=== PATIENT | male | born 1950 | race Caucasian/White ===

== ENCOUNTER 2021-01-20 01:49 | Day surgery (SDC) | payer MEDICARE, BC, SELFPAY ==
[2020-12-30 13:10] VITALS: BMI 25.8
[2021-01-20 07:09] VITALS: BP 150/72; PULSE 53; RESP 16; TEMP 36.3; O2SAT 98; BMI 26.8
[2021-01-20] MEDS: LACTATED RINGERS 1,000 ML 150 ML IV CONT (07:14)
[2021-01-20 07:20] LABS: Glucose Point of Care 119 mg/dl (65-105)
--- NOTE | 2021-01-20 07:48 | WPDGICN ---
Assessment and Plan Assessment and plan (1) Gastro-esophageal reflux disease without esophagitis: Code(s): K21.9 - Gastro-esophageal reflux disease without esophagitis Status: Acute Assessment and Plan: Patient complains of throat burning. He complains of excessive phlegm. Given his prior history of acid reflux. Suspect this may contribute to the symptoms. Currently on pantoprazole 40 mg p.o. b.i.d.. Plan is to continue anti-reflux measures. An EGD will be performed to assess further. Should symptoms persist long-term ENT follow-up may be an alternate consideration. (2) History of colon polyps: Code(s): Z86.010 - Personal history of colonic polyps Status: Acute Assessment and Plan: Patient has had colon polyps in the past. Anticipate follow-up colonoscopies on an intermittent basis. At anticipate follow-up colonoscopy 2021. (3) Family history of colon cancer in mother: Code(s): Z80.0 - Family history of malignant neoplasm of digestive organs Status: Acute GI Consult Note Consult date/time: 01/20/21 07:48 HPI: Lonny Vargas is a 70 year old male Presents for EGD. Patient has a sensation of excess phlegm in his throat. He complains of throat burning. In the past he is known to have acid reflux. Previous EGD is shown esophageal erosions. Most recently has been on PPI therapy on a b.i.d. basis. This has helped to a small degree. Because of ongoing sensations follow-up EGD is advised. Patient denies any difficulty swallowing food. He has had no dysphagia. No bleeding has been reported. No weight loss. Patient does have a prior history of colon polyps. There is a family history of colon cancer. He is anticipate follow-up colonoscopy next year. Review of Systems Review of Systems: All systems reviewed & are unremarkable except as noted in HPI and below PMFSH Past Medical History Medical History History of IBS Surgical History Surgical History History of vasectomy Family History Family History Father Diabetes mellitus Carcinoma of colon Grandparent Diabetes mellitus Family history of cardiovascular disease Family history of elevated blood lipids Social History Social History Smoking status: Never smoker Alcohol intake: current Alcohol use details: rarely Substance use: never Living arrangements: with family Spiritual care concerns: No Meds Home Medications and Allergies Home Medications Medication Instructions Recorded Confirmed Type finasteride 5 mg tablet 5 mg PO DAILY 07/01/19 01/20/21 History fvhfpcysaqko-yug-bvtod acid-vit 1 tablet PO DAILY 07/01/19 01/20/21 History K-lycop 400 mcg-20 mcg-370 mcg tablet sildenafil 50 mg tablet 50 mg PO DAILY PRN 07/01/19 01/20/21 History vitamin B complex 1 tablet PO DAILY 07/01/19 01/20/21 History fluticasone propionate 50 See Rx Instructions NASAL DAILY 11/06/19 01/20/21 Rx mcg/actuation nasal #15.8 ml spray,suspension diclofenac sodium 1 % topical gel 4 gm TOPICAL QID #100 gm 12/27/19 01/20/21 Rx atorvastatin 20 mg tablet See Rx Instructions .ROUTE 07/02/20 01/20/21 Rx .COMPLEX #90 tablet losartan 50 mg tablet 50 mg PO DAILY #90 tablet 09/22/20 01/20/21 Rx metformin 500 mg tablet,extended 500 mg PO DAILY #90 tablet 09/22/20 01/20/21 Rx release 24 hr cyclobenzaprine 10 mg tablet 10 mg PO .PRN tablet 12/10/20 01/20/21 History pantoprazole 40 mg tablet,delayed 40 mg PO BID #60 tablet 12/10/20 01/20/21 Rx release fluoxetine 10 mg capsule See Rx Instructions .ROUTE 12/22/20 01/20/21 Rx .COMPLEX #90 cap doxycycline hyclate 100 mg capsule 100 mg PO BID #20 cap 12/29/20 01/20/21 Rx methylprednisolone 4 mg tablets in See Rx Instr
--- NOTE | 2021-01-20 07:53 | WPDANESEPPF ---
Anes - Initial Pre Proc Eval Procedure: Operation Date: 01/20/21 08:00 Proposed Procedures p Esophagogastroduodenoscopy - Clark Christensen MD Date/Time: 01/20/21 07:53 Surgeon: Clark Christensen MD Pre Op Diagnosis: GERD Patient Data Age: 70 Gender: M Height: 1.73 m Weight: 80 kg Last Vital Signs Temp 97.4 F L 01/20/21 07:09 Pulse 53 L 01/20/21 07:09 Resp 16 01/20/21 07:09 BP 150/72 H 01/20/21 07:09 Pulse Ox 98 01/20/21 07:09 Allergies Allergy/AdvReac Type Severity Reaction Status Date / Time IVP DYE Allergy Intermediate unknown Uncoded 01/20/21 07:06 Home Medications Medication Instructions Recorded Confirmed Type finasteride 5 mg tablet 5 mg PO DAILY 07/01/19 01/20/21 History eklwueeikdmz-cnc-ictmo acid-vit 1 tablet PO DAILY 07/01/19 01/20/21 History K-lycop 400 mcg-20 mcg-370 mcg tablet sildenafil 50 mg tablet 50 mg PO DAILY PRN 07/01/19 01/20/21 History vitamin B complex 1 tablet PO DAILY 07/01/19 01/20/21 History fluticasone propionate 50 See Rx Instructions NASAL DAILY 11/06/19 01/20/21 Rx mcg/actuation nasal #15.8 ml spray,suspension diclofenac sodium 1 % topical gel 4 gm TOPICAL QID #100 gm 12/27/19 01/20/21 Rx atorvastatin 20 mg tablet See Rx Instructions .ROUTE 07/02/20 01/20/21 Rx .COMPLEX #90 tablet losartan 50 mg tablet 50 mg PO DAILY #90 tablet 09/22/20 01/20/21 Rx metformin 500 mg tablet,extended 500 mg PO DAILY #90 tablet 09/22/20 01/20/21 Rx release 24 hr cyclobenzaprine 10 mg tablet 10 mg PO .PRN tablet 12/10/20 01/20/21 History pantoprazole 40 mg tablet,delayed 40 mg PO BID #60 tablet 12/10/20 01/20/21 Rx release fluoxetine 10 mg capsule See Rx Instructions .ROUTE 12/22/20 01/20/21 Rx .COMPLEX #90 cap doxycycline hyclate 100 mg capsule 100 mg PO BID #20 cap 12/29/20 01/20/21 Rx methylprednisolone 4 mg tablets in See Rx Instructions PO PER PKG DIR 12/29/20 01/20/21 Rx a dose pack #21 ea Laboratory Tests 01/20/21 07:16 POC Capillary Glucose 119 mg/dl H mg/dl (65-105) Patient hx anesthesia problems: none Family hx anesthesia problems: none PMFSH Past Medical History Medical History History of IBS Surgical History Surgical History History of vasectomy Family History Family History Father Diabetes mellitus Carcinoma of colon Grandparent Diabetes mellitus Family history of cardiovascular disease Family history of elevated blood lipids Social History Social History Smoking status: Never smoker Alcohol intake: current Alcohol use details: rarely Substance use: never Living arrangements: with family Spiritual care concerns: No Anes - Eval Final PreProcedure Day of Procedure 01/20/21 07:53 Patient weight: overweight Heart: regular rate and rhythm Lungs: clear to auscultation Airway: Mallampati scale class II Neurological: alert and oriented Last oral intake: >/= 8 hours ASA classification: III Emergent: no Anesthetic plan: proceed Anesthesia type and monitoring: general GIVS and standard monitoring Informed Consent: The patient's anesthetic plan and its attendant risks and benefits were discussed with the patient/family/POA. Questions were solicited and answers provided to the satisfaction of the patient/family/POA.
[2021-01-20 08:10] VITALS: BP 135/64; PULSE 64; RESP 22; O2SAT 94
[2021-01-20 08:20] VITALS: BP 125/62; PULSE 55; RESP 21; O2SAT 94
[2021-01-20 08:30] VITALS: BP 130/61; PULSE 52; RESP 18; O2SAT 97
== END 2021-01-20 08:38 | disposition home or self-care (01) ==
PROVIDERS: PCP Family Medicine; Visit Provider Internal Medicine Gastroenterology
PROC: 0DJ08ZZ Inspection of Upper Intestinal Tract, Via Natural or Artificial Opening Endoscopic (ICD-10-PCS; CPT 43235; principal; 2021-01-20 08:00)
DX: K21.9 Gastro-esophageal reflux disease without esophagitis (principal); Q39.4 Esophageal web; Z80.0 Family history of malignant neoplasm of digestive organs; Z86.010 Personal history of colon polyps; Z79.84 Long term (current) use of oral hypoglycemic drugs
CPT/HCPCS: 43450; 43239; 82948; J2704; J7120

== ENCOUNTER 2021-05-12 11:28 | Emergency (ER) | payer MEDICARE, BC, SELFPAY ==
--- NOTE | ~2021-05-12 | XR_ITS ---
EXAMINATION: XR knee RT min 4V DATE: 05/12/2021 12:18 INDICATION: Right knee pain. TECHNIQUE: 4 views of right knee were obtained. COMPARISON: None. FINDINGS: Bone alignment is normal. No fracture. There is mild tricompartmental osteoarthritis charac terized by tiny marginal osteophytes. No joint space narrowing. No knee joint effusion. IMPRESSION: 1. Mild right knee osteoarthritis. Reviewed, dictated and finalized at location A.
[2021-05-12 11:42] VITALS: BP 147/64; PULSE 59; RESP 18; TEMP 36.4; O2SAT 99
--- NOTE | 2021-05-12 11:54 | ED.BACK ---
HPI - Back Pain/Injury General Chief Complaint: Extremity Problem,Nontraumatic Stated Complaint: Rt Leg Pain Time Seen by Provider: 05/12/21 11:54 Source: patient Mode of arrival: ambulatory Limitations: no limitations History of Present Illness HPI Narrative: Lonny Vargas is a 70-year-old male with a PMH of high cholesterol, BPH, depression, high blood pressure, diabetes, GERD, erectile dysfunction, who comes to [facility] with complaints of right leg pain. Started POA when he was walking to the car from relocating and how long the car to get out of the car was brought here. He has been working at the house on his hands and knees playing on floor and says the back of his leg is been sore but has not been causing this kind of pain Related Data Home Medications Medication Instructions Recorded Confirmed finasteride 5 mg tablet 5 mg PO DAILY 07/01/19 03/16/21 inxschukizrn-xrp-qisju acid-vit 1 tablet PO DAILY 07/01/19 03/16/21 K-lycop 400 mcg-20 mcg-370 mcg tablet sildenafil 50 mg tablet 50 mg PO DAILY PRN 07/01/19 03/16/21 vitamin B complex 1 tablet PO DAILY 07/01/19 03/16/21 cyclobenzaprine 10 mg tablet 10 mg PO .PRN tablet 12/10/20 03/16/21 Allergies Allergy/AdvReac Type Severity Reaction Status Date / Time IVP DYE Allergy Intermediate unknown Uncoded 03/16/21 14:47 Review of Systems Review of Systems: CONSTITUTIONAL: Denies fever, chills, sweats. EYES: Denies visual changes, redness, discharge. ENT: Denies rhinorrhea, congestion, sore throat, otalgia. CARDIOVASCULAR: Denies chest pain, palpitations, edema. RESPIRATORY: Denies dyspnea, wheezing, cough GASTROINTESTINAL: Denies abdominal pain, nausea, vomiting, diarrhea. GENITOURINARY: Denies dysuria, hematuria, abnormal discharge SKIN: Denies rash or itching. NEUROLOGIC: Denies numbness, or focal weakness. PSYCHIATRIC: Denies anxiety or depression. Right posterior knee pain that started suddenly POA PMFSH Past Medical History Medical History Essential (primary) hypertension Glucose intolerance History of IBS Mixed hyperlipidemia Surgical History Surgical History History of vasectomy Family History Family History Father Diabetes mellitus Carcinoma of colon Grandparent Diabetes mellitus Family history of cardiovascular disease Family history of elevated blood lipids Social History Social History (Updated 05/12/21 @ 12:05 by Jessica Galicia CNP) Smoking status: Never smoker Alcohol intake: current Alcohol use details: rarely Substance use: never Spiritual care concerns: No Comments At time of signature, I agree with nursing past medical, surgical, social and family history. There is no relevant family history pertinent to the presenting complaint. Exam Narrative: GENERAL: This is a well-nourished, well-developed patient, in mild distress. HEAD: normocephalic, atraumatic. EYES: Sclera clear/white. Vision is grossly intact. EARS: External ears normal, Hearing grossly intact. NOSE: External nose normal without nasal discharge, nares without redness, no rhinorrhea. THROAT: Mucous membranes moist, posterior pharynx NECK: Neck supple, non-tender CARDIOVASCULAR: Regular rate and rhythm without murmurs, gallops, or rubs. RESPIRATORY: Clear to auscultation. Breath sounds equal bilaterally. No wheezes, rales, or rhonchi. GASTROINTESTINAL: Abdomen soft, non-tender, SKIN: warm, intact with no suspicious lesions or rash, good texture and turgor. NEURO: awake, alert, and oriented to person, place and time. There were no obvious focal neurologic abnormalities. Steady gait EXTREMITIES: Normal range of motion. He has nearly full range of motion on right with some restriction of full flexion but states pain exceeds tender tries to stand on leg BACK: Nontender without
== END 2021-05-12 12:57 | disposition home or self-care (01) ==
PROVIDERS: Emergency Provider Nurse Practitioner; PCP Family Medicine
DX: M79.661 Pain in right lower leg (principal); M25.561 Pain in right knee; I10 Essential (primary) hypertension; E78.2 Mixed hyperlipidemia; E78.00 Pure hypercholesterolemia, unspecified; E11.9 Type 2 diabetes mellitus without complications; K21.9 Gastro-esophageal reflux disease without esophagitis; N40.0 Benign prostatic hyperplasia without lower urinary tract symptoms
CPT/HCPCS: 73564; 99213; G0463; L1830

== ENCOUNTER 2022-01-11 00:47 | Day surgery (SDC) | payer MEDICARE, BC, SELFPAY ==
[2021-12-24 13:28] VITALS: BMI 26.2
[2022-01-11 08:47] LABS: Glucose Point of Care 111 mg/dl (65-105)
[2022-01-11 08:52] VITALS: BP 173/63; PULSE 56; RESP 20; TEMP 36.3; O2SAT 98
[2022-01-11] MEDS: LACTATED RINGERS 1,000 ML 150 ML IV CONT (08:57)
--- NOTE | 2022-01-11 09:02 | WPDHPUPDATE1 ---
History and Physical Update Update Date/Time: 01/11/22 09:02 History and Physical has been reviewed, including an updated exam of the patient. There are NO changes in the patient's condition. Risks, benefits, and alternatives have been discussed and questions answered. Patient agrees to proceed with procedure.
--- NOTE | 2022-01-11 09:33 | WPDANESEPPF ---
Anes - Initial Pre Proc Eval Procedure: Operation Date: 01/11/22 10:00 Proposed Procedures p Colonoscopy - Clark Christensen MD Date/Time: 01/11/22 09:33 Surgeon: Clark Christensen MD Pre Op Diagnosis: change in bowel habits Patient Data Age: 71 Gender: M Height: 1.73 m Weight: 76.8 kg Last Vital Signs Temp 36.3 C L 01/11/22 08:52 Pulse 56 L 01/11/22 08:52 Resp 20 01/11/22 08:52 BP 173/63 H 01/11/22 08:52 Pulse Ox 98 01/11/22 08:52 O2 Del Method Room Air 01/11/22 08:52 Allergies Allergy/AdvReac Type Severity Reaction Status Date / Time IVP DYE Allergy Intermediate unknown Uncoded 01/11/22 08:48 Home Medications Medication Instructions Recorded Confirmed Type finasteride 5 mg tablet 5 mg PO DAILY 07/01/19 01/11/22 History jlkgtcnkdbys-enm-etoee acid-vit 1 tablet PO DAILY 07/01/19 01/11/22 History K-lycop 400 mcg-20 mcg-370 mcg tablet (One-A-Day Men's 50 Plus) sildenafil 50 mg tablet (Viagra) 50 mg PO DAILY PRN Seizure Activity 07/01/19 01/11/22 History diclofenac sodium 1 % topical gel 4 gm topical QID #100 grams 12/27/19 01/11/22 Rx (Voltaren) cyclobenzaprine 10 mg tablet 10 mg PO .PRN 12/10/20 01/11/22 History meloxicam 7.5 mg tablet 7.5 mg PO DAILY PRN pain #30 tabs 08/31/21 01/11/22 Rx pantoprazole 40 mg tablet,delayed 40 mg PO BID #60 tabs 09/07/21 01/11/22 Rx release atorvastatin 20 mg tablet 20 mg PO DAILY 01/11/22 01/11/22 History fluoxetine 10 mg capsule 10 mg PO DAILY 01/11/22 01/11/22 History fluticasone propionate 50 1 - 2 spray intranasal DAILY 01/11/22 01/11/22 History mcg/actuation nasal spray,suspension (Allergy Relief (fluticasone)) losartan 50 mg tablet 50 mg PO DAILY 01/11/22 01/11/22 History metformin 500 mg tablet,extended 500 mg PO DAILY 01/11/22 01/11/22 History release 24 hr Laboratory Tests 01/11/22 08:45 POC Capillary Glucose 111 mg/dl H mg/dl (65-105) Patient hx anesthesia problems: none Family hx anesthesia problems: none Results Review: All pre-operative results and documents have been reviewed as part of the pre-operative evaluation. [facility] Past Medical History Medical History Change in bowel habits Essential (primary) hypertension Glucose intolerance History of IBS Loose stools Mixed hyperlipidemia Surgical History Surgical History History of vasectomy Family History Family History Father Diabetes mellitus Carcinoma of colon Grandparent Diabetes mellitus Family history of cardiovascular disease Family history of elevated blood lipids Social History Social History Smoking status: Never smoker Alcohol intake: never Alcohol use details: rarely Substance use: never Substance use type: does not use Living arrangements: with family Spiritual care concerns: No Anes - Eval Final PreProcedure Day of Procedure 01/11/22 09:33 Patient weight: normal Heart: regular rate and rhythm Lungs: clear to auscultation Airway: Mallampati scale class II Neurological: alert and oriented ASA classification: II Emergent: no Anesthetic plan: proceed Anesthesia type and monitoring: general GIVS and standard monitoring Results Review: All pre-operative results and documents have been reviewed as part of the pre-operative evaluation. Informed Consent: The patient's anesthetic plan and its attendant risks and benefits were discussed with the patient/family/POA. Questions were solicited and answers provided to the satisfaction of the patient/family/POA.
[2022-01-11 10:20] VITALS: BP 112/60; PULSE 55; RESP 18; O2SAT 94
[2022-01-11 10:30] VITALS: BP 134/71; PULSE 46; RESP 20; O2SAT 99
[2022-01-11 10:40] VITALS: BP 138/69; PULSE 45; RESP 15; O2SAT 98
[2022-02-04 15:09] LABS: Gliadin AB, IgG <1.0 U/mL (<15.0); Reticulin IgA Negative (Negative); TTG IGA AB <1.0 U/mL (<15.0)
== END 2022-01-11 10:49 | disposition home or self-care (01) ==
PROVIDERS: PCP Family Medicine; Visit Provider Internal Medicine Gastroenterology
PROC: 0DJD8ZZ Inspection of Lower Intestinal Tract, Via Natural or Artificial Opening Endoscopic (ICD-10-PCS; CPT 45378; principal; 2022-01-11 10:00)
DX: R19.4 Change in bowel habit (principal); D12.0 Benign neoplasm of cecum; D12.5 Benign neoplasm of sigmoid colon; K63.5 Polyp of colon; K64.8 Other hemorrhoids; R19.5 Other fecal abnormalities; K57.30 Diverticulosis of large intestine without perforation or abscess without bleeding; K58.9 Irritable bowel syndrome, unspecified; K21.9 Gastro-esophageal reflux disease without esophagitis; Z80.0 Family history of malignant neoplasm of digestive organs; I10 Essential (primary) hypertension; E78.2 Mixed hyperlipidemia; Z79.84 Long term (current) use of oral hypoglycemic drugs
CPT/HCPCS: 45385; 36415; 82948; 83516; 86255; 88305; J7120

== ENCOUNTER 2022-01-25 10:04 | Emergency (ER) | payer MEDICARE, BC, SELFPAY ==
[2022-01-25 10:15] VITALS: BP 154/66; PULSE 61; RESP 18; TEMP 36.6; O2SAT 99
--- NOTE | 2022-01-25 10:22 | ED.GENADULT ---
HPI - General Adult General Chief complaint: Upper Respiratory Infection Stated complaint: Sore Throat Source: patient Mode of arrival: ambulatory Limitations: no limitations History of Present Illness HPI narrative: Patient presents for evaluation of sore throat for the last 3 days. His grandson had strep last and he states that they were spending quite a bit of time together. No fever, chills, nausea, vomiting, otalgia, cough or SOB. He has some rhinorrhea and sinus congestion which he attributes to seasonal allergies. He does not smoke. He took two home COVID tests which were both negative. He has received COVID vaccinations and booster. He has been taking ibuprofen for his symptoms. Related Data Home Medications Medication Instructions Recorded Confirmed finasteride 5 mg tablet 5 mg PO DAILY 07/01/19 01/25/22 wzvbsgsyluui-fpv-ubifa acid-vit 1 tablet PO DAILY 07/01/19 01/25/22 K-lycop 400 mcg-20 mcg-370 mcg tablet (One-A-Day Men's 50 Plus) cyclobenzaprine 10 mg tablet 10 mg PO .PRN 12/10/20 01/11/22 atorvastatin 20 mg tablet 20 mg PO DAILY 01/11/22 01/25/22 fluoxetine 10 mg capsule 10 mg PO DAILY 01/11/22 01/25/22 losartan 50 mg tablet 50 mg PO DAILY 01/11/22 01/25/22 metformin 500 mg tablet,extended 500 mg PO DAILY 01/11/22 01/25/22 release 24 hr Allergies Allergy/AdvReac Type Severity Reaction Status Date / Time IVP DYE Allergy Intermediate unknown Uncoded 01/25/22 10:20 Review of Systems Review of Systems: CONSTITUTIONAL: Denies fever, chills, or sweats. EYES: Denies visual changes, redness, or discharge. ENT: Reports sinus congestion and rhinorrhea. Reports sore throat. Denies otalgia. CARDIOVASCULAR: Denies chest pain, palpitations, or edema. RESPIRATORY: Denies cough or dyspnea. GASTROINTESTINAL: Denies abdominal pain, nausea, vomiting, or diarrhea. GENITOURINARY: Denies dysuria or hematuria. SKIN: Denies rash or itching. MUSCULOSKELETAL: Denies back pain, joint pain, or myalgia. NEUROLOGIC: Denies headache, numbness, dizziness, or weakness. PSYCHIATRIC: Denies anxiety or depression. [facility] Past Medical History Medical History Change in bowel habits Essential (primary) hypertension Glucose intolerance History of IBS Loose stools Mixed hyperlipidemia Surgical History Surgical History History of vasectomy Family History Family History Father Diabetes mellitus Carcinoma of colon Grandparent Diabetes mellitus Family history of cardiovascular disease Family history of elevated blood lipids Social History Social History Smoking status: Never smoker Alcohol intake: never Alcohol use details: rarely Substance use: never Substance use type: does not use Living arrangements: with family Gender identity (if verbalized by the patient): Male Sexual Orientation (if Verbalized by the Patient): Straight or Heterosexual Spiritual care concerns: No Exam Narrative: GENERAL: Well-appearing, well-nourished, and in no acute distress. HEAD: Normocephalic, atraumatic. EYES: PERRLA and EOMI. ENT: Nares clear, no rhinorrhea or epistaxis. Mucous membranes moist. Oropharynx without tonsillar hypertrophy exudate or other lesions. However, there is posterior pharyngeal erythema. Bilateral TMs pearly styles nonbulging NECK: Supple. No adenopathy or masses. No carotid bruits or JVD CHEST: Clear to auscultation. No respiratory distress. No wheezes rales or rhonchi HEART: Regular rate and rhythm. No murmur heard. Normal peripheral pulses. ABDOMEN: Soft, nontender, nondistended, normal active bowel sounds. EXTREMITIES: Normal range of motion. No edema. SKIN: Warm, dry, no rash. NEURO: No focal deficits. Alert and oriented x3. PSYCH: N
== END 2022-01-25 10:40 | disposition home or self-care (01) ==
PROVIDERS: Emergency Provider Nurse Practitioner; PCP Family Medicine
DX: J02.0 Streptococcal pharyngitis (principal); I10 Essential (primary) hypertension; E78.2 Mixed hyperlipidemia; Z98.52 Vasectomy status; E74.39 Other disorders of intestinal carbohydrate absorption
CPT/HCPCS: 87880; 99213; G0463

== ENCOUNTER 2022-03-30 13:09 | Outpatient (CLI) | payer MEDICARE, BC, SELFPAY ==
--- NOTE | 2022-03-31 15:48 | WPDHOLTEREM ---
Holter/Event Monitor Holter/Event Monitor Date of procedure: 03/30/22 Holter/Event Procedure: 24 Hr Holter Monitor Indications: Bradycardia Conclusion: 1. 24 hour holter monitor on 03/30/22. 2. Underlying rhythm is sinus rhythm. HR range 40-93 bpm; average HR 57 bpm. HR at 40 bpm was at 16:17. 3. There are 66 premature supraventricular complexes and 2 supraventricular couplets. No supraventricular tachycardia. 4. There are 4 premature ventricular complexes. No ventricular tachycardia. 5. No sinoatrial or atrioventricular blocks. No significant pauses greater than 2 seconds. 6. No symptoms available for correlation.
== END 2022-03-30 13:10 | disposition home or self-care (01) ==
LOC: ANHCARD 13:11
PROVIDERS: PCP Family Medicine; Visit Provider Physician Assistant
DX: R00.1 Bradycardia, unspecified (principal)
CPT/HCPCS: 93225; 93226

== ENCOUNTER 2022-04-01 07:25 | Outpatient (CLI) | payer MEDICARE, BC, SELFPAY ==
--- NOTE | 2022-04-22 18:13 | WPDSLEEPSTUD ---
Sleep Study Date of Study: 04/01/22 Ordering Provider: Josh Marley PA-C Interpreting Physician: Madyson Burkett, Sleep Study Type: Polysomnogram Height: 1.65 m Weight: 78.018 kg Body Mass Index: 28.6 Neck Circumference (inches): 16.5 [place]: 6 Reason for Sleep Study Loud snoring. The patient had nocturnal oximetry done on 03/16/2022 that showed an DAYNA of 6/hr. It was recommended that he have a sleep study. Sleep History The patient is a 71-year-old male with hypertension, prediabetes, GERD, hyperlipidemia, anxiety and benign prostatic hyperplasia that had a sleep study ordered by his primary care for evaluation of sleep apnea after having nocturnal oximetry done. The patient denies awakening from sleep short of breath. He denies awakening at night with heartburn, belching or cough. He constantly snores loud enough that others complain. He occasionally has trouble sleeping when he has a cold. He denies waking up gasping for air throughout the night. He rarely sweats excessively at night. He denies having heart palpitations or irregular heartbeats during the night. He occasionally falls asleep during the day But never while driving. He denies sleep paralysis, cataplexy and hypnagogic / hypnopompic hallucinations. He denies having trouble at school or work due to sleepiness. He denies having nightmares. He occasionally remembers his dreams. He rarely has thoughts racing through his mind. He rarely feels sad or depressed. He occasionally has anxiety. He occasionally has muscular tension. He rarely notices parts of his body jerk. He occasionally kicks during the night. He occasionally has crawling and aching feelings in his legs but rarely has leg pain during the night. He frequently grinds his teeth during sleep and occasionally awakens with morning jaw pain. He is rarely bothered by pain during the day and rarely awakened by pain during the night. He occasionally wakes up feeling stiff in the morning. He rarely wakes up with sore achy muscles. He denies waking up with pain in the neck, spine and other joints. He goes to bed between 10:30-11 p.m. on both weekdays and weekends. It takes him 5-10 minutes to fall asleep. He wakes up 1-2 times throughout the night to urinate. He is able to fall back asleep immediately. He wakes up between 6-7 a.m. on both weekdays and weekends. He typically gets 7 hours of sleep per night. He will stay in bed for 5-10 minutes after waking up in the morning. He currently lives with his . He does not consume any caffeinated beverages within 2 hours of bedtime. He does not engage in physical exercise before bedtime. He will occasionally read before falling asleep. He denies watching television before falling asleep. He will take naps in the afternoon or the evening. He drinks 3 cups of coffee per day. He denies tobacco, alcohol and recreational drug use. [facility] Past Medical History Medical History Change in bowel habits Essential (primary) hypertension Glucose intolerance History of IBS Loose stools Mixed hyperlipidemia Surgical History Surgical History History of vasectomy Family History Family History Father Diabetes mellitus Carcinoma of colon Grandparent Diabetes mellitus Family history of cardiovascular disease Family history of elevated blood lipids Social History Social History Social History: Caffeine-coffee Smoking status: Never smoker Alcohol intake: never Substance use: never Substance use type: does not use Gender identity (if verbalized by the patient): Male Sexual Orientation (if Verbalized by the Patient): Straight or Heterosexual Spiritual care concerns: No Medications Home Medications M
[2022-04-22 19:55] VITALS: BMI 28.6
== END 2022-04-02 06:16 | disposition home or self-care (01) ==
LOC: ANHCSM 07:26
PROVIDERS: PCP Family Medicine; Visit Provider Physician Assistant
DX: G47.30 Sleep apnea, unspecified (principal); R06.83 Snoring
CPT/HCPCS: 95810

== ENCOUNTER 2022-04-28 09:48 | Outpatient (CLI) | payer MEDICARE, BC, SELFPAY ==
--- NOTE | ~2022-04-28 | XR_ITS ---
EXAMINATION: XR chest 2V DATE: 04/28/2022 10:08 INDICATION: Abnormal blood gas level. TECHNIQUE: Frontal and lateral views of the chest were obtained. COMPARISON: None. FINDINGS: The chest demonstrates clear lungs without pneumonia, pleural effusion, or pneumothorax. Th e heart size is normal. IMPRESSION: 1. No acute cardiopulmonary disease. Reviewed, dictated and finalized at location A.
== END 2022-04-28 09:49 | disposition home or self-care (01) ==
PROVIDERS: PCP Family Medicine; Visit Provider Physician Assistant
DX: R79.81 Abnormal blood-gas level (principal)
CPT/HCPCS: 71046

== ENCOUNTER 2022-05-15 17:30 | Emergency (ER) | payer MEDICARE, BC, SELFPAY ==
--- NOTE | 2022-05-15 17:44 | ED.SKABFB ---
HPI - Skin/Abscess/Foreign Bdy General Chief complaint: Skin/Abscess/Foreign Body Stated complaint: stepped on a screw Time Seen by Provider: 05/15/22 17:44 Source: patient Mode of arrival: ambulatory Limitations: no limitations History of Present Illness HPI narrative: 71-year-old male presents with puncture wound to the plantar aspect of left foot. Stepped on wood board in backyard the head screw sticking out of it. States that screw was dirty and joe In his last tetanus was 9 years ago. Would like tetanus updated today. Cleaned wound prior to arrival. All systems reviewed and negative except as noted above. Related Data Home Medications Medication Instructions Recorded Confirmed finasteride 5 mg tablet 5 mg PO DAILY 07/01/19 05/15/22 oxynfiukhwdk-wxo-voxlp acid-vit 1 tablet PO DAILY 07/01/19 05/15/22 K-lycop 400 mcg-20 mcg-370 mcg tablet (One-A-Day Men's 50 Plus) atorvastatin 20 mg tablet 20 mg PO DAILY 01/11/22 05/15/22 fluoxetine 10 mg capsule 10 mg PO DAILY 01/11/22 05/15/22 metformin 500 mg tablet,extended 500 mg PO BID 01/11/22 05/15/22 release 24 hr Allergies Allergy/AdvReac Type Severity Reaction Status Date / Time IVP DYE Allergy Intermediate unknown Uncoded 05/15/22 17:35 Review of Systems Review of Systems: CONSTITUTIONAL: Denies fever, chills, or sweats. EYES: Denies visual changes, redness, or discharge. ENT: Denies rhinorrhea, congestion, sore throat, or otalgia. CARDIOVASCULAR: Denies chest pain, palpitations, or edema. RESPIRATORY: Denies cough or dyspnea. GASTROINTESTINAL: Denies abdominal pain, nausea, vomiting, or diarrhea. GENITOURINARY: Denies dysuria or hematuria. SKIN: Denies rash or itching. Reports puncture wound to plantar aspect left foot. MUSCULOSKELETAL: Denies back pain, joint pain, or myalgia. NEUROLOGIC: Denies headache, numbness, or weakness. PSYCHIATRIC: Denies anxiety or depression. All other systems reviewed are negative, except as documented in HPI. [facility] Past Medical History Medical History Change in bowel habits Essential (primary) hypertension Glucose intolerance History of IBS Loose stools Mixed hyperlipidemia Surgical History Surgical History History of vasectomy Family History Family History Father Diabetes mellitus Carcinoma of colon Grandparent Diabetes mellitus Family history of cardiovascular disease Family history of elevated blood lipids Social History Social History Social History: Caffeine-coffee Smoking status: Never smoker Alcohol intake: never Substance use: never Substance use type: does not use Gender identity (if verbalized by the patient): Male Sexual Orientation (if Verbalized by the Patient): Straight or Heterosexual Spiritual care concerns: No Comments At time of signature, agree with nursing past medical, surgical, social and family history. There is no relevant family history pertinent to the presenting complaint. Exam Narrative: GENERAL: This is a well-nourished, well-developed patient, in no apparent distress. HEAD: normocephalic, atraumatic. EYES: PERRL. Sclera clear/white. Vision is grossly intact. EARS: External ears normal NOSE: External nose normal NECK: Neck supple, non-tender without lymphadenopathy, masses or thyromegaly. CARDIOVASCULAR: Regular rate and rhythm without murmurs, gallops, or rubs. RESPIRATORY: Clear to auscultation. Breath sounds equal bilaterally. No wheezes, rales, or rhonchi. SKIN: warm, Dry, with no suspicious lesions or rash, good texture and turgor. Small puncture wound noted to plantar aspect left foot ( see image). NEURO: awake, alert, and oriented to person, place and time. There were no obvious focal neurologic abnormali
[2022-05-15] MEDS: TETANUS/DIPHTHERIA TOXOIDS ADSORB 0.5 ML VIAL (*BKC) IM (17:51)
[2022-05-15 18:30] VITALS: BP 145/61; PULSE 61; RESP 18; TEMP 36.5; O2SAT 99
== END 2022-05-15 17:59 | disposition home or self-care (01) ==
PROVIDERS: Emergency Provider Nurse Practitioner Family; PCP Family Medicine
DX: S91.332A Puncture wound without foreign body, left foot, initial encounter (principal); W26.8XXA Contact with other sharp object(s), not elsewhere classified, initial encounter; Z23 Encounter for immunization; I10 Essential (primary) hypertension; E78.2 Mixed hyperlipidemia; Z98.52 Vasectomy status; E74.39 Other disorders of intestinal carbohydrate absorption
CPT/HCPCS: 90471; 90714; 99212; G0463

== ENCOUNTER 2022-09-09 10:29 | Outpatient (CLI) | payer MEDICARE, BC, SELFPAY ==
--- NOTE | ~2022-09-09 | XR_ITS ---
EXAMINATION: XR foot RT min 3V DATE: 09/09/2022 10:51 INDICATION: Right heel pain TECHNIQUE: Dorsoplantar, lateral, and 2 oblique views of the right foot were obtained. COMPARISON: None. FINDINGS: A plantar calcaneal enthesophyte is noted. Bone alignment is normal. There is no fracture. There is mild osteoarthritis at the first metatarsophalangeal joint and in multiple interphalangeal j oints. The soft tissues are unremarkable. IMPRESSION: 1. Polyarticular osteoarthritis. Reviewed, dictated and finalized at location B. [facility]
== END 2022-09-09 10:30 | disposition home or self-care (01) ==
PROVIDERS: PCP Family Medicine; Visit Provider Physician Assistant
DX: M19.071 Primary osteoarthritis, right ankle and foot (principal)
CPT/HCPCS: 73630

== ENCOUNTER 2022-11-08 10:51 | Emergency (ER) | payer MEDICARE, BC, SELFPAY ==
[2022-11-08 11:12] VITALS: BP 123/64; PULSE 54; RESP 16; TEMP 36.4; O2SAT 99
--- NOTE | 2022-11-08 11:27 | ED.URI ---
HPI - URI/Sore Throat General Stated Complaint: congestion,cough Time Seen by Provider: 11/08/22 11:27 Source: patient Mode of arrival: ambulatory Limitations: no limitations History of Present Illness HPI Narrative: 72-year-old male presents with complaint of nasal congestion, sinus pressure for the past 10 days. Reports cough, postnasal drainage for the past 5 days. Afebrile. Denies nausea vomiting diarrhea. States that his told him that his cough sounds throaty . Patient denies chest pain and shortness of breath. Has tried Zyrtec, Sudafed but is not taking any medications consistently to treat his symptoms. Is concerned for a sinus infection. All systems reviewed and negative except as noted above. Related Data Home Medications Medication Instructions Recorded Confirmed finasteride 5 mg tablet 5 mg PO DAILY 07/01/19 09/02/22 rnajwhshuctm-woj-pszlh acid-vit 1 tablet PO DAILY 07/01/19 09/02/22 K-lycop 400 mcg-20 mcg-370 mcg tablet (One-A-Day Men's 50 Plus) fluoxetine 10 mg capsule 10 mg PO DAILY 01/11/22 09/02/22 metformin 500 mg tablet,extended 500 mg PO BID 01/11/22 09/02/22 release 24 hr Allergies Allergy/AdvReac Type Severity Reaction Status Date / Time IVP DYE Allergy Intermediate unknown Uncoded 11/08/22 11:36 Review of Systems Review of Systems: CONSTITUTIONAL: Denies fever, chills, or sweats. reports fatigue. EYES: Denies visual changes, redness, or discharge. ENT: reports rhinorrhea, congestion, sinus pressure, postnasal drainage. Denies sore throat, or otalgia. CARDIOVASCULAR: Denies chest pain, palpitations, or edema. RESPIRATORY: Reports cough. Denies dyspnea. GASTROINTESTINAL: Denies abdominal pain, nausea, vomiting, or diarrhea. GENITOURINARY: Denies dysuria or hematuria. SKIN: Denies rash or itching. MUSCULOSKELETAL: Denies back pain, joint pain, or myalgia. NEUROLOGIC: Denies headache, numbness, or weakness. PSYCHIATRIC: Denies anxiety or depression. All other systems reviewed are negative, except as documented in HPI. 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 Loose stools Mixed hyperlipidemia Primary osteoarthritis, unspecified site Trigger finger Umbilical hernia without obstruction and without gangrene Surgical History Surgical History History of vasectomy Family History Family History Father Diabetes mellitus Carcinoma of colon Grandparent Diabetes mellitus Family history of cardiovascular disease Family history of elevated blood lipids Social History Social History (Updated 09/02/22 @ 14:32 by Radha Krishna, [facility]) Social History: Caffeine-coffee Smoking status: Never smoker Alcohol intake: never Substance use: never Substance use type: does not use Lack of Transportation: No Lack of Food: Never True Current Housing: I Have Housing Concerned About Future Housing: No Difficulty Paying Gas/Electric Bills: No Difficulty Paying for Meds: No Currently Unemployed: No Education: Master's Degree or Higher Difficulty w/ Childcare or Family Care: No Living arrangements: with family Gender identity (if verbalized by the patient): Male Sexual Orientation (if Verbalized by the Patient): Straight or Heterosexual Spiritual care concerns: No Comments At time of signature, agree with nursing past medical, surgical, social and family history. There is no relevant family history pertinent to the presenting complaint. Exam Narrative: GENERAL: This is a well-nourished, well-developed patient, in no apparent distress. HEAD: normocephalic, atraumatic. EYES: PERRL. Sclera clear/white. Vision is grossly intact. EARS: External
== END 2022-11-08 11:43 | disposition home or self-care (01) ==
PROVIDERS: Emergency Provider Nurse Practitioner Family; PCP Family Medicine
DX: J01.90 Acute sinusitis, unspecified (principal); I10 Essential (primary) hypertension; E78.2 Mixed hyperlipidemia; Z98.52 Vasectomy status
CPT/HCPCS: 99213; G0463

== ENCOUNTER 2023-01-07 18:19 | Emergency (ER) | payer MEDICARE, BC, SELFPAY ==
[2023-01-07 18:34] VITALS: BP 143/65; PULSE 52; RESP 16; TEMP 36.4; O2SAT 99
--- NOTE | 2023-01-07 18:50 | ED.SKABFB ---
HPI - Skin/Abscess/Foreign Bdy General Chief complaint: Skin/Abscess/Foreign Body Stated complaint: Rash Time Seen by Provider: 01/07/23 18:55 Source: patient Mode of arrival: ambulatory Limitations: no limitations History of Present Illness HPI narrative: 72-year-old male presented for c/o red rash to left chest for about 3 days and a cluster was found today on the left back. Endorses pain with anything touching the rash lesions. Denies lip, tongue, or throat swelling, shortness of breath or wheezing. Denies changes to soap, detergent, lotion, medication or any other exposures. No one else in the household with similar symptoms. Reports cold symptoms about 3 weeks ago. Related Data Home Medications Medication Instructions Recorded Confirmed finasteride 5 mg tablet 5 mg PO DAILY 07/01/19 01/07/23 nnjhwvbjhlax-slf-qrtvd acid-vit 1 tablet PO DAILY 07/01/19 01/07/23 K-lycop 400 mcg-20 mcg-370 mcg tablet (One-A-Day Men's 50 Plus (with vitamin K)) Allergies Allergy/AdvReac Type Severity Reaction Status Date / Time IVP DYE AdvReac Mild Hives Uncoded 01/07/23 18:30 Review of Systems Review of Systems: CONSTITUTIONAL: Denies body aches, fever, chills, or sweats. EYES: Denies visual changes, redness, or discharge. ENT: Denies rhinorrhea, congestion CARDIOVASCULAR: Denies chest pain, palpitations, or edema. RESPIRATORY: Denies cough or dyspnea. GASTROINTESTINAL: Denies abdominal pain, nausea, vomiting, or diarrhea. SKIN: per HPI MUSCULOSKELETAL: Denies back pain, joint pain, or myalgia. NEUROLOGIC: Denies headache, numbness, tingling, or weakness. 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 Loose stools Mixed hyperlipidemia Primary osteoarthritis, unspecified site Trigger finger Umbilical hernia without obstruction and without gangrene Surgical History Surgical History History of vasectomy Family History Family History Father Diabetes mellitus Carcinoma of colon Grandparent Diabetes mellitus Family history of cardiovascular disease Family history of elevated blood lipids Social History Social History Social History: Caffeine-coffee Smoking status: Never smoker Alcohol intake: never Substance use: never Substance use type: does not use Lack of Transportation: No Lack of Food: Never True Current Housing: I Have Housing Concerned About Future Housing: No Difficulty Paying Gas/Electric Bills: No Difficulty Paying for Meds: No Currently Unemployed: No Education: Master's Degree or Higher Difficulty w/ Childcare or Family Care: No Living arrangements: with family Gender identity (if verbalized by the patient): Male Sexual Orientation (if Verbalized by the Patient): Straight or Heterosexual Spiritual care concerns: No Comments At time of signature, I have reviewed and agree with nursing past medical, surgical, social and family history unless otherwise noted. Please see nursing chart for further information. There is no relevant family history pertinent to the presenting complaint Exam Narrative: GENERAL: Well-appearing HEAD: Normocephalic, atraumatic. EYES: conjunctivae clear, and EOMI. ENT: Mucous membranes moist. Oropharynx without edema, erythema or lesions. NECK: Supple. No lymphadenopathy CHEST: Clear to auscultation. HEART: Regular rate and rhythm. SKIN: Warm, dry. Erythematous fascicular lesions noted to the left lower chest and left mid back approx 3cm diameter c/w zoster lesions on T7 dermatome NEURO: Alert and oriented x3. Course Course Emergency Course: Patient is aw
== END 2023-01-07 19:08 | disposition home or self-care (01) ==
PROVIDERS: Emergency Provider Nurse Practitioner Family; PCP Family Medicine
DX: B02.9 Zoster without complications (principal); I10 Essential (primary) hypertension; E78.5 Hyperlipidemia, unspecified
CPT/HCPCS: 99213; G0463

== ENCOUNTER 2024-02-13 13:57 | Outpatient (CLI) | payer MEDICARE, BC, SELFPAY ==
--- NOTE | ~2024-02-13 | CT_ITS ---
EXAMINATION: CT diagnostic chest w con DATE: 02/13/2024 14:22 INDICATION: aortic root enlargement TECHNIQUE: Computed tomography (CT) of the chest was performed with 100 mL Omnipaque-350 intravenous contrast. Additional 3D reconstructions utilizing coronal maximum intensity projection (MIP) were per formed. Automated exposure control and iterative reconstruction technique were employed. The dose-everette gth product was 356.74 mGy-cm. COMPARISON: Minimal dependent atelectasis in the bilateral lower lobes. Heart size is normal. No arturo cardial or pleural effusion. Normal caliber thoracic aorta with no dissection. The aortic root measur es 2.9 x 3.1 cm at the annulus, 4.0 x 3.6 cm at the sinus of Valsalva and 3.6 x 3.6 cm at the annular tubular junction. The second AP measurement is somewhat limited by some motion artifact. No patholog ically enlarged thoracic lymphadenopathy. Visualized upper abdomen is unremarkable. Moderate thoracic spondylosis with minimal to mild anterior wedging of a few lower thoracic vertebral bodies. FINDINGS: Normal caliber thoracic aorta with mildly dilated root with measurements as detailed above. IMPRESSION: 1. Reviewed, dictated and finalized at location A. IMPRESSION: 1.
[2024-02-13 14:14] LABS: Estimated Glomerular Filt Rate > 60
== END 2024-02-13 13:58 ==
LOC: MICIMG 13:58
PROVIDERS: PCP Internal Medicine Cardiovascular Disease; Visit Provider Internal Medicine Cardiovascular Disease
DX: I77.89 Other specified disorders of arteries and arterioles (principal)
CPT/HCPCS: 71260; Q9967

== ENCOUNTER 2024-08-20 07:50 | Outpatient (CLI) | payer MEDICARE, BC, SELFPAY ==
--- NOTE | ~2024-08-20 | CT_ITS ---
CT of the Abdomen and Pelvis: Indication: Prostate cancer Technique: 2.5 mm axial scans were obtained through the abdomen and pelvis following intravenous adm inistration of 100 cc of Omnipaque 350. Dose reduction technique was used on this scan by utilizing a utomated exposure control and iterative reconstruction technique. The dose-length product (DLP) was 5 11.38 mGy-cm. Findings: Scans through the lung bases are unremarkable. The liver, spleen, pancreas, gallbladder, adrenals and kidneys are within normal limits. No evidence of aortic aneurysm. No lymphadenopathy. No bowel obstruction or bowel wall thickening. There is sigmoid diverticulosis. Small to moderate fat -containing umbilical hernia present. Images through the pelvis were performed. Urinary bladder unremarkable. Prostate gland is enlarged. N o ascites. Impression: No evidence of metastatic disease. Enlarged prostate gland. Small to moderate fat-containing umbilical hernia. Reviewed, dictated and finalized at [facility]. ITY CONTROL TESTER Impression: No evidence of metastatic disease. Enlarged prostate gland. Small to moderate fat-containing umbilical hernia.
--- NOTE | ~2024-08-20 | NM_ITS ---
EXAMINATION: NM bone scan whole body DATE: 08/20/2024 12:58 INDICATION: Prostate cancer TECHNIQUE: 24.9 mCi Tc-99m HDP was administered intravenously. Delayed whole-body scintigrams were o btained. COMPARISON: CT abdomen and pelvis dated 08/20/2024 FINDINGS: Typical pattern of likely degenerative joint centered uptake at the bilateral acromioclavicular and s ternoclavicular joints and at the radial aspect of the carpi. There are couple foci of skin contamina tion at the right forearm and along the anterolateral right abdomen. No suspicious foci of abnormal b one uptake to suggest metastatic disease. IMPRESSION: 1. No lesion suspicious for metastatic disease. Reviewed, dictated and finalized at location A. OLL ACCOUNTING MANAGER
--- OUTSIDE RECORDS SUMMARY | 2024-08-20 07:54 | XMS_ITS | Referral Summary ---
Author Organization [facility] [place] [address] Address [address] [place] [address] Care Team Providers Care Grape Picker Name Role Phone Minda Galloway MD Primary Care Provider + Allergies Active Allergy Reactions Criticality Noted Date Comments Iodinated Contrast Media Nausea & Vomiting Low 01/22 Medications atorvastatin (LIPITOR) 20 mg tablet 2 Active finasteride (PROSCAR) 5 mg tablet Take 1 tablet (5 mg total) by mouth daily 2 Active metFORMIN XR (GLUCOPHAGE XR) 500 mg 24 hr tablet Take 1 tablet (500 mg total) by mouth daily [address] (PROTONIX) 40 mg EC tablet 2 Active FLUoxetine 10 mg capsule Take 1 tablet/capsule (10 mg total) by mouth daily 2 Active losartan (COZAAR) 100 mg tablet Take 1 tablet (100 mg total) by mouth daily 3 Active tadalafiL (CIALIS) 20 mg tablet Take 1 tablet (20 mg total) by mouth daily as needed for erectile dysfunction 3 Active multivitamin tabletIndication s:Vitamin Deficiency Prevention Take 1 tablet by mouth Active hydroCHLOROthiaz duc (MICROZIDE) 12.5 mg capsuleIndicatio ns:Essential hypertension Take 1 capsule (12.5 mg total) by mouth every morning 90 capsule 3 4 09/18/19 25 Active aspirin 81 mg enteric coated tabletIndication s:prevention of thrombosis Take 1 tablet (81 mg total) by mouth daily 4 01/30/20 25 Active predniSONE (DELTASONE) 50 mg tablet Take 1 tablet (50 mg) by mouth as directed Pt to take 50 mg 13 hours, 7 hours and 1 hour prior to procedure 3 tablet 4 Active diphenhydrAMINE (BENADRYL) 50 mg capsule Take 1 capsule (50 mg total) by mouth once for 1 dose Take one tablet 1 hour prior to procedure 1 capsule 4 Active Active Problems Problem Noted Date Diagnosed Date Aortic root enlargement (CMS/HCC) 01/30/2024 Nonrheumatic aortic valve insufficiency 09/08/19 23 Hyperlipidemia LDL goal <100 05/20/2022 Pre-diabetes 05/20/2022 Essential hypertension 05/20/2022 Bradycardia, unspecified 05/20/2022 Palpitations 05/20/2022 Systolic ejection murmur 05/20/2022 Social History Tobacco Use Types Packs/Day Years Used Date Smoking Tobacco: Never Smokeless Tobacco: Never Tobacco Cessation:Counseling Given: Not Answered Personal Safety Answer Date Recorded Getting School Help Needed Not on file 09/06 Sex and Gender Information Value Date Recorded Sex Assigned at Not on file Legal Sex Male 8:55 AM CDT Gender Identity Not on file Sexual Orientation Not on file Last Filed Vital Signs Vital Sign Reading Time Taken Comments Blood Pressure 130/70 01/30/2024 11:40 AM CDT Pulse 54 01/30/2024 11:40 AM CDT Temperature - - Respiratory Rate 15 05/20/2022 3:12 PM CDT Oxygen Saturation 96% 01/30/2024 11:40 AM CDT Inhaled Oxygen Concentration - - Weight 79.4 kg (175 lb) 01/30/2024 11:40 AM CDT Height 172.7 cm (5' 8 ) 01/30/2024 11:40 AM CDT Body Mass Index 26.61 01/30/2024 11:40 AM CDT Plan of Treatment Not on file Insurance MEDICARE [facility] [place] [address] [place] [address] MEDICARE [facility] [employer] Care Teams Grape Picker Relationship Specialty Start Date End Date Minda Galloway MD PCP - General Family Medicine 04/26/22
--- OUTSIDE RECORDS SUMMARY | 2024-08-20 07:54 | XMS_ITS | Clinical Summary ---
Author Organization [facility] [place] [address] Address [address] [place] [address] Care Team Providers Care Certified Wellness Program Manager Name Role Phone Minda Galloway MD Primary [...] 05/20/2022 Palpitations 05/20/2022 Systolic ejection murmur 05/20/2022 Surgical History Surgery Date Site/Laterality Comments VASECTOMY 1985 Medical History Medical History Date Comments Hypertension GERD (gastroesophageal reflux disease) 2001 Benign prostatic hyperplasia 2011 Family History Medical History Relation Name Comments Cancer Father Beto Vargas Colon cancer Father Beto Vargas Diabetes Maternal Grandmother Jaci Vargas Car Accident Mother Relation Name Status Comments Father Beto Vargas Maternal Grandmother Jaci Vargas Mother Social History Tobacco Use Types Packs/Day Years Used Date Smoking Tobacco: Never Smokeless Tobacco: Never Tobacco Cessation:Counseling Given: Not Answered Personal Safety Answer Date Recorded Getting School Help Needed Not on file 09/06 Sex and Gender Information Value Date Recorded Sex Assigned at Not on file Legal Sex Male 8:55 AM CDT Gender Identity Not on file Sexual Orientation Not on file Obstetrics History Last Filed Vital Signs Vital Sign Reading [...] 01/30/2024 11:40 AM CDT Plan of Treatment Health Maintenance Due Date Last Done Comments Depression Screening 1948 Hepatitis C Screening 1948 Hepatitis B Screening 1966 Zoster Vaccine (1 of 2) 1998 Pneumococcal vaccine 65+ (1 of 1 - PCV) 2013 Well Visit 65+ 2013 DTaP/Tdap/Td Vaccine (1 - Tdap) 05/16/2022 2 Fall Risk Assessment 05/20/2023 05/20/2022 Covid-19 Vaccine ( - season) 2024 07/21/2021, 10/19/2020, 09/21/2020 Influenza Vaccine (#1) 2024 , 05/17/2019, 05/17/2018 Insurance MEDICARE [facility] MEDICARE [facility] FED[facility] Member Subscriber Plan / Payer (Ef fective 2017-Present) Name:Lonny Vargas Relation to Subscriber:Self Name:Lonny Vargas Payer ID:[id number] (NAIC) Group ID:[id number] Type:[facility] Address: [address] [place] [id number] Care Teams Certified Wellness Program Manager Relationship Specialty Start Date End Date Minda Galloway MD PCP - General Family Medicine 04/26/22
[2024-08-20 08:27] LABS: Estimated Glomerular Filt Rate > 60
== END 2024-08-20 07:51 | disposition home or self-care (01) ==
PROVIDERS: PCP Family Medicine; Visit Provider Urology
DX: C61 Malignant neoplasm of prostate (principal); N40.0 Benign prostatic hyperplasia without lower urinary tract symptoms; K42.9 Umbilical hernia without obstruction or gangrene
CPT/HCPCS: 74177; 78306; A9503; Q9967

== ENCOUNTER 2024-11-05 09:57 | Outpatient (CLI) | payer MEDICARE, BC, SELFPAY ==
--- NOTE | ~2024-11-05 | XR_ITS ---
Clinical Indication: Prostate malignancy PA and lateral views of the chest: Comparison: 04/28/2022 Findings: The lungs are clear, without evidence of focal consolidation or pleural effusion. Cardiome diastinal silhouette is within normal limits. Bones and soft tissues are unremarkable. Impression: Normal chest. Reviewed, dictated and finalized at location . Impression: Normal chest.
--- OUTSIDE RECORDS SUMMARY | 2024-11-05 10:52 | XMS_ITS | Referral Summary ---
Author Organization [facility] [address] Address [address] [place] [address] Care Team Providers Care Pan Devulcanizer Helper Name Role Phone Minda Galloway MD Primary Care Provider + Encounters Date Type Department Care Team Description 09/20/2024 9:30 AM HYDRAULIC JACK OPERATOR Office Visit [facility] Cardiology at [address] [place] [address] Philippe Saldana MD Essential hypertension (Primary Dx); Aortic root enlargement; Bradycardia, unspecified; Hyperlipidemia LDL goal <100 from Last 3 Months Allergies Active Allergy Reactions Criticality Noted Date [...] Prevention Take 1 tablet by mouth Active aspirin 81 mg enteric coated tabletIndication s:prevention of thrombosis Take 1 tablet (81 mg total) by mouth daily 4 01/30/20 25 Active hydroCHLOROthiaz duc (MICROZIDE) 12.5 mg capsuleIndicatio ns:Essential hypertension TAKE 1 CAPSULE(12.5 MG) BY MOUTH EVERY MORNING 90 capsule 3 5 Active Active Problems Problem Noted Date Diagnosed Date Aortic root enlargement 01/30/2024 Nonrheumatic aortic valve insufficiency 09/08/19 23 Hyperlipidemia LDL goal <100 05/20/2022 Pre-diabetes 05/20/2022 Essential hypertension 05/20/2022 Bradycardia, unspecified 05/20/2022 Palpitations 05/20/2022 Systolic ejection murmur 05/20/2022 Social History Tobacco Use Types Packs/Day Years Used Date Smoking Tobacco: Never Smokeless Tobacco: Never Tobacco Cessation:Counseling Given: Not Answered Sex and Gender Information Value Date Recorded Sex Assigned at Not on file Legal Sex Male 8:55 AM CDT Gender Identity Not on file Sexual Orientation Not on file Last Filed Vital Signs Vital Sign Reading Time Taken Comments Blood Pressure 134/58 09/20/2024 12:37 PM HYDRAULIC JACK OPERATOR Pulse 60 09/20/2024 9:22 AM HYDRAULIC JACK OPERATOR Temperature - - Respiratory Rate 15 05/20/2022 3:12 PM CDT Oxygen Saturation 92% 09/20/2024 9:22 AM HYDRAULIC JACK OPERATOR Inhaled Oxygen Concentration - - Weight 78.5 kg (173 lb) 09/20/2024 9:22 AM HYDRAULIC JACK OPERATOR Height 172.7 cm (5' 8 ) 09/20/2024 9:22 AM HYDRAULIC JACK OPERATOR Body Mass Index 26.3 09/20/2024 9:22 AM HYDRAULIC JACK OPERATOR Plan of Treatment Not on file Insurance MEDICARE [facility] [place] [address] MEDICARE [facility] Care Teams Pan Devulcanizer Helper Relationship Specialty Start Date End Date Minda Galloway MD PCP - General Family Medicine 04/26/22
--- OUTSIDE RECORDS SUMMARY | 2024-11-05 10:52 | XMS_ITS | Clinical Summary ---
Author Organization [facility] [address] Address [address] [place] [address] Care Team Providers Care Pourer Name Role Phone Minda Galloway MD Primary [...] BY MOUTH EVERY MORNING 90 capsule 3 Active Active Problems Problem Noted Date Diagnosed Date Aortic root enlargement 01/30/2024 Nonrheumatic aortic valve insufficiency 09/08/19 23 Hyperlipidemia LDL goal <100 05/20/2022 Pre-diabetes 05/20/2022 Essential hypertension 05/20/2022 Bradycardia, unspecified 05/20/2022 Palpitations 05/20/2022 Systolic ejection murmur 05/20/2022 Encounters Date Type Department Care Team Description 09/20/2024 9:30 AM RESPIRATORY CARE FACULTY Office Visit [facility] Cardiology at [address] [place] [address] Philippe Saldana MD Essential hypertension (Primary Dx); Aortic root enlargement; Bradycardia, unspecified; Hyperlipidemia LDL goal <100 from Last 3 Months Surgical History Surgery Date Site/Laterality Comments VASECTOMY 1985 Medical History Medical History Date Comments Hypertension GERD (gastroesophageal reflux disease) 2001 Benign prostatic hyperplasia 2011 Cancer (HCC) 08/08/2024 (prostate cancer) Family History Medical History Relation Name Comments [...] Comments Blood Pressure 134/58 09/20/2024 12:37 PM RESPIRATORY CARE FACULTY Pulse 60 09/20/2024 9:22 AM RESPIRATORY CARE FACULTY Temperature - - Respiratory Rate 15 05/20/2022 3:12 PM CDT Oxygen Saturation 92% 09/20/2024 9:22 AM RESPIRATORY CARE FACULTY Inhaled Oxygen Concentration - - Weight 78.5 kg (173 lb) 09/20/2024 9:22 AM RESPIRATORY CARE FACULTY Height 172.7 cm (5' 8 ) 09/20/2024 9:22 AM RESPIRATORY CARE FACULTY Body Mass Index 26.3 09/20/2024 9:22 AM RESPIRATORY CARE FACULTY Plan of Treatment Health Maintenance Due Date Last Done Comments Depression Screening 1948 Hepatitis C Screening 1948 Hepatitis B Screening 1966 Pneumococcal vaccine 65+ (1 of 1 - PCV) 1998 Zoster Vaccine (1 of 2) 1998 Well Visit 65+ 2013 DTaP/Tdap/Td Vaccine (1 - Tdap) 05/16/2022 2 Fall Risk Assessment 05/20/2023 05/20/2022 Covid-19 Vaccine (4 - season) 2024 07/21/2021, 10/19/2020, 09/21/2020 Influenza Vaccine (#1) 2024 , 05/17/2019, 05/17/2018 Insurance MEDICARE [facility] MEDICARE [facility] FEDERAL Member Subscriber Plan / Payer (Ef fective 2017-Present) Name:Lonny Vargas Relation to Subscriber:Self Name:Lonny Vargas Payer ID:[id number] (NAIC) Group ID:[id number] Type:[facility] Address: [address] [place] [id number] Care Teams Pourer Relationship Specialty Start Date End Date Minda Galloway MD PCP - General Family Medicine 04/26/22
--- NOTE | 2024-11-05 10:53 | ECG_ITS ---
Test Date: 2024-11-05 11:11:17 Measurements Intervals [place] Rate: 52 P: 38 MO: 170 QRS: 38 QRSD: 108 T: 29 QT: 422 QTc: 395 Interpretive Statements SINUS BRADYCARDIA DELAYED PRECORDIAL R/S TRANSITION CONSIDER INFERIOR INFARCT, AGE INDETERMINATE BASELINE ARTIFACT- I, II, III, AVR, AVL, AVF ABNORMAL ECG No previous ECG available for comparison Electronically Signed On 11-05-2024 11:58:08 CDT by Tobias Aleman D.O.
[2024-11-05 12:03] LABS: Basophils Absolute Auto 0.1 K/mm3 (0.0-0.1); Eosinophils Absolute Auto 0.1 K/mm3 (0-0.3); Eosinophils Percent Auto 1.8 % (0-4.4); Hematocrit 41.2 % (42.0-52.0); Hemoglobin 13.8 g/dL (14.0-18.0); Immature Granulocyte Absolute 0.02 K/mm3 (0.00-0.031); Immature Granulocyte Percent A 0.3 % (0-0.5); Lymphocytes Absolute Auto 1.93 K/mm3 (0.9-3.2); Lymphocytes Percent Auto 26.8 % (18.3-44.2); Mean Corpuscular HGB Conc 33.5 g/dl (32-36); Mean Corpuscular Hemoglobin 29.7 pg (26-34); Mean Corpuscular Volume 88.6 fl (80-100); Mean Platelet Volume 10.7 fl (7.4-10.4); Monocytes Absolute Auto 0.8 K/mm3 (0.1-0.6); Monocytes Percent Auto 11.3 % (2.6-8.5); Neutrophils Absolute Auto 4.2 K/mm3 (1.3-6.7); Neutrophils Percent Auto 58.8 % (45.5-73.1); Platelet Count Result 185 k/mm3 (150-375); Red Blood Count 4.65 M/mm3 (4.6-6.20); Red Cell Distribution Width 13.2 % (11.5-14.5); White Blood Count 7.2 K/mm3 (4.5-10.0)
[2024-11-05 12:16] LABS: Add Urine Microscopic? NO; Appearance Urine Clear (Clear); Bilirubin Urine Negative (Negative); Blood Urine Negative (Negative); Color Urine Yellow (Yellow); Glucose Urine UA Negative (Negative); Ketones Urine Negative (Negative); Leukocyte Esterase Ur Negative LEU/UL (Negative); Nitrate Urine Negative (Negative); Protein Urine Negative (Negative); Specific Grav Ur 1.008 (1.001-1.035); Urobilinogen Urine 0.2 mg/dL (<2.0); pH Urine 7.5 (5.0-9.0)
[2024-11-05 12:22] LABS: Partial Thromboplastin Time 26.1 Seconds (22.3-36.8)
== END 2024-11-05 09:58 | disposition home or self-care (01) ==
LOC: ANHSURGERY 10:03
PROVIDERS: PCP Family Medicine; Visit Provider Urology
DX: R94.31 Abnormal electrocardiogram [ECG] [EKG] (principal); C61 Malignant neoplasm of prostate
CPT/HCPCS: 36415; 71046; 81003; 85025; 85610; 85730; 86850; 86900; 86901; 93005

== ENCOUNTER 2024-11-14 08:29 | Inpatient (IN) | payer MEDICARE, BC, SELFPAY ==
--- NOTE | 2024-11-05 10:02 | PC.NURSE ---
Addendum entered by Nilda Jett RN 11/05/24 10:54: CLARIFICATION: LIQUID DIET AND LAXATIVES PER DR WORTHY INSTRUCTIONS ON DAY BEFORE SURGERY. PT HAS WRITTEN INSTRUCTIONS AND RELAYS UNDERSTANDING. Original Note: Report to the Outpatient Waiting Room, entrance under the green pavilion located off [facility], at time ___6:00AM____ on date ___11/14/24____. Planned Procedure Time: ___7:30AM .? Time changes happen often and if your time is changed the preop area will call you the afternoon before. - You and your visitor will be asked to self-screen and do not enter if you have any COVID symptoms. Please call surgeon if you need to reschedule. - A mask is optional within the hospital at this time. Patients may have clear liquids (water, carbonated beverages, clear teas, apple juice) until 3 hours prior to surgery (4:30AM) with a maximum of 20 ounces. - No food from midnight until time of surgery and no smoking, or chewing tobacco (or any form of nicotine). No chewing gum, candy or mints. Take only the following medications with a SIP of water on the morning of surgery: ____FLUOXETINE DO NOT STOP ANY OF YOUR OTHER PRESCRIPTION MEDICATIONS PRIOR TO SURGERY EXCEPT THE FOLLOWING Medications to discontinue per physician __HOLD ASPIRIN AND VITAMINS/SUPPLEMENTS 7 DAYS PRE-OP PER DR WORTHY Date to take last dose____11/06/24 Please no make-up, nail cypriot, hairspray, perfume, deodorant, or body powder the day of surgery.? No jewelry (including any body piercings) or valuables the day of surgery, leave them at home.? Please take a shower or bath the night before, or the morning of, surgery with an antibacterial soap.? Wear comfortable, loose fitting clothing.? - Jewelry must be removed prior to entering the operating room.? Rings and piercings that are not removed may be cut off. - The hospital will not accept responsibility for valuables.? - Please leave all valuables, including medications, at home the day of surgery. If you are going home after surgery, a licensed tram driver must drive you home.? - NO public transportation without another adult if you receive anesthesia. - We recommend that an adult stay with you for 24 hours following discharge. - We also recommend that you do not drive, make important decision, drink alcoholic beverages, or take any drugs that were not prescribed by your health care provider for at least 24 hours after your discharge time. Follow any additional instructions given to you from your surgeon. Telephone instructions given to ____PATIENT and asked if any additional questions and then verbalized understanding. Patient advised to call surgeon office or pre surgery nurse liaison [phone] if any additional questions.
[2024-11-05 10:14] VITALS: BP 145/64; PULSE 55; RESP 16; TEMP 36.4; O2SAT 98; BMI 26.4
[2024-11-05 10:40] VITALS: BP 152/55
--- NOTE | 2024-11-06 09:23 | PM.IMHP ---
H&P: HPI History of Present Illness Date/Time: 11/06/24 09:23 Chief Complaint: Prostate cancer Narrative: 74-year-old gentleman recently underwent evaluation for PSA of 5.5. Prostate ultrasound and biopsy demonstrated a 28 g prostate with 5 of 12 cores showing Catarino 4+3=7. All positive cores were from the right side. Staging CT scan abdomen pelvis and bone scan showed no evidence of metastatic disease. After discussion of options including active surveillance radiation therapy and radical prostatectomy he has elected for the latter. He is aware the risk including, but not limited to, adverse cardiopulmonary events, need for additional therapy, rectal injury, erectile dysfunction and urinary incontinence. In addition to the radical prostatectomy patient has met with Dr. Ji and undergo umbilical hernia repair Review of Systems Cardiovascular: Cardiovascular: Denies chest pain, Denies lightheadedness, Denies palpitations and Denies dyspnea Respiratory: Respiratory: Denies dyspnea Gastrointestinal: Gastrointestinal: Denies diarrhea, Denies nausea and Denies vomiting Genitourinary: Genitourinary: Denies hematuria and Denies dysuria Endocrine: Endocrine: Denies palpitations [facility] Past Medical History Medical History (Updated 11/05/24 @ 13:21 by Minda Galloway MD) Umbilical hernia without obstruction and without gangrene GERD (gastroesophageal reflux disease) Prostate cancer Allergies Loose stools 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 Trigger finger History of IBS Essential (primary) hypertension Mixed hyperlipidemia Primary osteoarthritis, unspecified site History of TMJ disorder Surgical History Surgical History History of vasectomy Family History Family History Father Diabetes mellitus Carcinoma of colon Grandparent Diabetes mellitus Family history of cardiovascular disease Family history of elevated blood lipids Social History Social History Social History: Caffeine-coffee Smoking status: Never smoker Alcohol intake: never Substance use: never Substance use type: does not use Do You Feel Safe in your Home?: Yes Lack of Transportation: No Lack of Food: Never True Current Housing: I Have Housing Concerned About Future Housing: No Difficulty Paying Gas/Electric Bills: No Difficulty Paying for Meds: No Currently Unemployed: No Education: Master's Degree or Higher Difficulty w/ Childcare or Family Care: No Living arrangements: with family Additional living arrangements comments: Gender identity (if verbalized by the patient): Male Sexual Orientation (if Verbalized by the Patient): Straight or Heterosexual Spiritual care concerns: No Meds Home Medications and Allergies Home Medications ?Medication ?Instructions ?Recorded ?Confirmed ?Type finasteride 5 mg tablet 5 mg PO DAILY 07/01/19 11/05/24 History pervnlwwkibt-fqw-huuan acid-vit 1 tablet PO DAILY 07/01/19 11/05/24 History K-lycop 400 mcg-20 mcg-370 mcg tablet (One-A-Day Men's 50 Plus (with vitamin K)) aspirin 81 mg tablet,delayed 81 mg PO DAILY 03/07/24 11/05/24 History release hydrochlorothiazide 12.5 mg capsule 12.5 mg PO DAILY 03/07/24 11/05/24 History pantoprazole 40 mg tablet,delayed See Rx Instructions .Route 04/15/24 11/05/24 Rx release .COMPLEX #90 tabs atorvastatin 20 mg tablet 20 mg PO DAILY #90 tabs 07/08/24 11/05/24 Rx losartan 100 mg tablet See Rx Instructions .Route 09/09/24 11/05/24 Rx .COMPLEX #90 tabs fluoxetine 10 mg capsule 10 mg PO DAILY #90 caps 09/24/24 11/05/24 Rx metformin 500 mg tablet,extended 500 mg PO DAILY #90 tabs 09/24/24 11/05/24 Rx release 24 hr Allergies Allergy/AdvReac Type Severity Reaction Status Date / Time iohexol (From contrast - CT, AdvReac Nausea Verified 11/05/24 11:00 X-RAY) Vital Signs Vital Signs - 24 hr 11/05/24 10:14 11/05/24 10:40 Temperature 97.5 F L Pulse Rate 55 L Respiratory Rate 16 Blood Pressure 145/64 H 152/55 H Pulse Oximetry 98 Oxygen Delivery Room Air Exam Const: General: no acute distress Resp: Effort & Inspection: normal respiratory effort GI: Inspection: non-distended GI Palp: No abdominal tenderness and No Guarding due to palpation present (GI) Auscultation: normal bowel sounds Assessment and Plan Assessment and plan (1) Prostate cancer: Code(s): C61 - Malignant neoplasm of prostate Status: Acute Assessment and Plan: Robotic assisted radical prostatectomy with bilateral pelvic lymphadenectomy Umbilical hernia repair per Dr. Ji
[2024-11-14] VITALS (11 sets, daily range): BP systolic 121–163; BP diastolic 58–75; PULSE 65–78; RESP 13–21; TEMP 35.6–36.3; O2SAT 91–97; BMI 25.7
--- OUTSIDE RECORDS SUMMARY | 2024-11-14 02:49 | XMS_ITS | Encounter Summary ---
Author Organization [facility] Address [address] [place] [address] Care Team Providers Care Shadowgraph Scale Operator Name Role Phone Minda Galloway MD Primary Care Provider + Encounter Details Date Type Department Care Team (Late st Contact Info) Description 11/07/2024 Telephone [facility] Cardiology [address] [place] [address] Philippe Saldana MD [address] [address] Social History Tobacco Use Types Packs/Day Years Used Date Smoking Tobacco: Never Smokeless Tobacco: Never Sex and Gender Information Value Date Recorded Sex Assigned at Not on file Legal Sex Male 8:55 AM CDT Gender Identity Not on file Sexual Orientation Not on file documented as of this encounter Miscellaneous Notes * Telephone Encounter - Nida Valle RN - 11/08/2024 11:11 AM CDT Spoke with pt, informed him I do not have the EKG that he is referring to to review myself. Pt saidhe was told MAF reviewed it and spoke with anesthesia regarding it and was not concerned and he wascleared for surgery. Pt appreciated the callback. * Telephone Encounter - Ricarda Granados - 11/07/2024 4:21 PM CDT Pt states he is scheduled for prostate surgery next with Dr. Arteaga. He had an EKG done at[facility] two days ago. States [facility] reviewed the EKG and cleared him for surgery. He states the EKG was abnormal and wants to know what was abnormal about the EKG. Contact: documented in this encounter Plan of Treatment Not on file documented as of this encounter Visit Diagnoses Not on filedocumented in this encounter Care Teams Shadowgraph Scale Operator Relationship Specialty Start Date End Date Minda Galloway MD PCP - General Family Medicine 04/26/22 documented as of this encounter
--- OUTSIDE RECORDS SUMMARY | 2024-11-14 02:49 | XMS_ITS | Referral Summary ---
Author Organization [facility] [address] [place] [address] [address] [place] [address] Care Team Providers Care Web Engineer Name Role Phone Minda Galloway MD Primary Care Provider + Encounters Date Type Department Care Team Description 11/07/2024 Telephone [facility] Cardiology [address] [facility] [address] [place] [address] Philippe Saldana MD 09/20/2024 9:30 AM SIZE MAKER Office Visit [facility] Cardiology at [address] [place] [address] Philippe Saldana MD Essential hypertension [...] Comments Blood Pressure 134/58 09/20/2024 12:37 PM SIZE MAKER Pulse 60 09/20/2024 9:22 AM SIZE MAKER Temperature - - Respiratory Rate 15 05/20/2022 3:12 PM CDT Oxygen Saturation 92% 09/20/2024 9:22 AM SIZE MAKER Inhaled Oxygen Concentration - - Weight 78.5 kg (173 lb) 09/20/2024 9:22 AM SIZE MAKER Height 172.7 cm (5' 8 ) 09/20/2024 9:22 AM SIZE MAKER Body Mass Index 26.3 09/20/2024 9:22 AM SIZE MAKER Plan of Treatment Not on file Insurance MEDICARE [facility] [place] [address] MEDICARE [facility] Address: [address] [address] [facility] [employer] Care Teams Web Engineer Relationship Specialty Start Date End Date Minda Galloway MD PCP - General Family Medicine 04/26/22
--- OUTSIDE RECORDS SUMMARY | 2024-11-14 02:49 | XMS_ITS | Clinical Summary ---
Author Organization [facility] [address] Address [address] [place] [address] Care Team Providers Care Client Services Assistant Name Role Phone Minda Galloway MD Primary [...] Type Department Care Team Description 11/07/2024 Telephone [facility] Cardiology [address] [facility] [address] [place] [address] Philippe Saldana MD 09/20/2024 9:30 AM CREDIT UNION MANAGER Office Visit [facility] Cardiology at [address] [place] [address] Philippe Saldana MD Essential hypertension (Primary Dx); Aortic root enlargement; Bradycardia, unspecified; Hyperlipidemia LDL goal <100 from Last 3 Months Surgical History Surgery Date Site/Laterality Comments VASECTOMY 1985 Medical History Medical History Date Comments Hypertension GERD (gastroesophageal reflux disease) 2001 Benign prostatic hyperplasia 2012 Cancer (HCC) 08/08/2024 (prostate cancer) Family History Medical History Relation Name Comments Cancer Father eBto Vargas Colon cancer Father Beto Vargas Diabetes [...] Comments Blood Pressure 134/58 09/20/2024 12:37 PM CREDIT UNION MANAGER Pulse 60 09/20/2024 9:22 AM CREDIT UNION MANAGER Temperature - - Respiratory Rate 15 05/20/2022 3:12 PM CDT Oxygen Saturation 92% 09/20/2024 9:22 AM CREDIT UNION MANAGER Inhaled Oxygen Concentration - - Weight 78.5 kg (173 lb) 09/20/2024 9:22 AM CREDIT UNION MANAGER Height 172.7 cm (5' 8 ) 09/20/2024 9:22 AM CREDIT UNION MANAGER Body Mass Index 26.3 09/20/2024 9:22 AM CREDIT UNION MANAGER Plan of Treatment Health Maintenance Due Date Last Done Comments Depression Screening 1948 Hepatitis C Screening 1948 Hepatitis B Screening 1966 Pneumococcal vaccine 65+ (1 of 1 - PCV) 1998 Zoster Vaccine (1 of 2) 1998 Well Visit 65+ 2013 DTaP/Tdap/Td Vaccine (1 - Tdap) 05/16/2022 Fall Risk Assessment 05/20/2023 05/20/2022 Covid-19 Vaccine ( season) 2024 07/21/2021, 10/19/2020, 09/21/2020 Influenza Vaccine (Season Ended) 2025 05/10/2021, 05/17/2019, 05/17/2018 Insurance MEDICARE [facility] Member Subscriber Plan / Payer (Ef fective 2017-Present) Name:Lonny Vargas Relation to Subscriber:Self Name:Lonny Vargas Payer ID:[id number] (NAIC) Group ID:[id number] Type:[facility] Address: [address] [place] [id number] MEDICARE [facility] Care Teams Client Services Assistant Relationship Specialty Start Date End Date Minda Galloway MD PCP - General Family Medicine 04/26/22
--- NOTE | 2024-11-14 06:13 | WPDHPUPDATE1 ---
History and Physical Update Update Date/Time: 11/14/24 06:13 History and Physical has been reviewed, including an updated exam of the patient. There are NO changes in the patient's condition. Risks, benefits, and alternatives have been discussed and questions answered. Patient agrees to proceed with procedure.
[2024-11-14] MEDS: LACTATED RINGERS 1,000 ML 30 ML IV CONT ×2 (06:55→11:23)
[2024-11-14] MEDS: ACETAMINOPHEN 500 MG TABLET 1000 MG PO (07:09)
[2024-11-14] MEDS: KETOROLAC 15 MG/ML VIAL (*BKC) IV PUSH ×2 (07:09→13:49)
--- NOTE | 2024-11-14 07:11 | WPDANESEPPF ---
Anes - Initial Pre Proc Eval Procedure: Operation Date: 11/14/24 07:30 Proposed Procedures p Robotic Assisted Laparoscopic Prostatectomy with Possible Bilateral Pelvic Lymph Node Dissection - Vamsi Arteaga MD s Robotic Assisted Umbilical Hernia Repair with Mesh - Toshia Ji MD Date/Time: 11/14/24 07:11 Surgeon: Vamsi Arteaga MD Pre Op Diagnosis: prostate CA, umbilical hernia (4cm) Patient Data Age: 74 Gender: M Height: 1.73 m Weight: 78.7 kg Last Vital Signs Temp 36.4 C L 11/05/24 10:14 Pulse 55 L 11/05/24 10:14 Resp 16 11/05/24 10:14 BP 152/55 H 11/05/24 10:40 Pulse Ox 98 11/05/24 10:14 O2 Del Method Room Air 11/05/24 10:14 Allergies Allergy/AdvReac Type Severity Reaction Status Date / Time iohexol (From contrast - CT, AdvReac Nausea Verified 11/05/24 11:00 X-RAY) Home Medications ?Medication ?Instructions ?Recorded ?Confirmed ?Type finasteride 5 mg tablet 5 mg PO DAILY 07/01/19 11/05/24 History fkcnrmvmbxnr-pxu-gygjo acid-vit 1 tablet PO DAILY 07/01/19 11/05/24 History K-lycop 400 mcg-20 mcg-370 mcg tablet (One-A-Day Men's 50 Plus (with vitamin K)) aspirin 81 mg tablet,delayed 81 mg PO DAILY 03/07/24 11/05/24 History release hydrochlorothiazide 12.5 mg capsule 12.5 mg PO DAILY 03/07/24 11/05/24 History pantoprazole 40 mg tablet,delayed See Rx Instructions .Route 04/15/24 11/05/24 Rx release .COMPLEX #90 tabs atorvastatin 20 mg tablet 20 mg PO DAILY #90 tabs 07/08/24 11/05/24 Rx losartan 100 mg tablet See Rx Instructions .Route 09/09/24 11/05/24 Rx .COMPLEX #90 tabs fluoxetine 10 mg capsule 10 mg PO DAILY #90 caps 09/24/24 11/05/24 Rx metformin 500 mg tablet,extended 500 mg PO DAILY #90 tabs 09/24/24 11/05/24 Rx release 24 hr Patient hx anesthesia problems: none Family hx anesthesia problems: none Results Review: All pre-operative results and documents have been reviewed as part of the pre-operative evaluation. 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 Trigger finger History of IBS Essential (primary) hypertension Mixed hyperlipidemia Primary osteoarthritis, unspecified site History of TMJ disorder Surgical History Surgical History History of vasectomy Family History Family History Father Diabetes mellitus Carcinoma of colon Grandparent Diabetes mellitus Family history of cardiovascular disease Family history of elevated blood lipids Social History Social History Social History: Caffeine-coffee Smoking status: Never smoker Alcohol intake: never Substance use: never Substance use type: does not use Do You Feel Safe in your Home?: Yes Lack of Transportation: No Lack of Food: Never True Current Housing: I Have Housing Concerned About Future Housing: No Difficulty Paying Gas/Electric Bills: No Difficulty Paying for Meds: No Currently Unemployed: No Education: Master's Degree or Higher Difficulty w/ Childcare or Family Care: No Living arrangements: with family Additional living arrangements comments: Gender identity (if verbalized by the patient): Male Sexual Orientation (if Verbalized by the Patient): Straight or Heterosexual Spiritual care concerns: No Anes - Eval Final PreProcedure Day of Procedure 11/14/24 07:11 Patient weight: overweight Heart: bradycardia Lungs: clear to auscultation Airway: Mallampati scale class II Neurological: alert and oriented Last oral intake: >/= 8 hours ASA classification: III Emergent: no Anesthetic plan: proceed Anesthesia type and monitoring: general ETT and standard monitoring Results Review: All pre-operative results and documents have been reviewed as part of the pre-operative evaluation. Informed Consent: The patient's anesthetic plan and its attendant risks and benefits were discussed with the patient/family/POA. Questions were solicited and answers provided to the satisfaction of the patient/family/POA.
[2024-11-14 07:16] LABS: Glucose Point of Care 117 mg/dl (65-105)
--- NOTE | 2024-11-14 07:24 | PM.IMHP ---
H&P: HPI History of Present Illness Date/Time: 11/14/24 07:24 Chief Complaint: umbilical hernia Narrative: Lonny is a 74 y/o male who presents to the office accompanied by his at the request of Dr. Arteaga for evaluation of a umbilical hernia. Patient states he has had a umbilical bulge for the past 10 years. It has gradually increased in size and causes more frequent discomfort with activity. Denies any nausea or vomiting. Denies any issues with bowel habits. Ct abd/pelvis on 08/20/24 showed a small to moderate fat-containing umbilical hernia. Patient is having prostatectomy with Dr. Arteaga on 11/14/24 and would like to coordinate surgery. 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 Trigger finger History of IBS Essential (primary) hypertension Mixed hyperlipidemia Primary osteoarthritis, unspecified site History of TMJ disorder Surgical History Surgical History History of vasectomy Family History Family History Father Diabetes mellitus Carcinoma of colon Grandparent Diabetes mellitus Family history of cardiovascular disease Family history of elevated blood lipids Social History Social History Social History: Caffeine-coffee Smoking status: Never smoker Alcohol intake: never Substance use: never Substance use type: does not use Do You Feel Safe in your Home?: Yes Lack of Transportation: No Lack of Food: Never True Current Housing: I Have Housing Concerned About Future Housing: No Difficulty Paying Gas/Electric Bills: No Difficulty Paying for Meds: No Currently Unemployed: No Education: Master's Degree or Higher Difficulty w/ Childcare or Family Care: No Living arrangements: with family Additional living arrangements comments: Gender identity (if verbalized by the patient): Male Sexual Orientation (if Verbalized by the Patient): Straight or Heterosexual Spiritual care concerns: No Meds Home Medications and Allergies Home Medications ?Medication ?Instructions ?Recorded ?Confirmed ?Type finasteride 5 mg tablet 5 mg PO DAILY 07/01/19 11/14/24 History sibmzcphmbbw-kyq-kslry acid-vit 1 tablet PO DAILY 07/01/19 11/14/24 History K-lycop 400 mcg-20 mcg-370 mcg tablet (One-A-Day Men's 50 Plus (with vitamin K)) aspirin 81 mg tablet,delayed 81 mg PO DAILY 03/07/24 11/14/24 History release hydrochlorothiazide 12.5 mg capsule 12.5 mg PO DAILY 03/07/24 11/14/24 History pantoprazole 40 mg tablet,delayed See Rx Instructions .Route 04/15/24 11/14/24 Rx release .COMPLEX #90 tabs atorvastatin 20 mg tablet 20 mg PO DAILY #90 tabs 07/08/24 11/14/24 Rx losartan 100 mg tablet See Rx Instructions .Route 09/09/24 11/14/24 Rx .COMPLEX #90 tabs fluoxetine 10 mg capsule 10 mg PO DAILY #90 caps 09/24/24 11/14/24 Rx metformin 500 mg tablet,extended 500 mg PO DAILY #90 tabs 09/24/24 11/14/24 Rx release 24 hr Allergies Allergy/AdvReac Type Severity Reaction Status Date / Time iohexol (From contrast - CT, AdvReac Nausea Verified 11/14/24 07:23 X-RAY) Exam Const: General: cooperative, comfortable and no acute distress Resp: Auscultation: clear to auscultation bilaterally Cardio: Rate: regular rate Rhythm: regular rhythm GI: Inspection: normal to inspection and non-distended GI Palp: No abdominal tenderness, Yes Soft to palpation, No Tenderness to palpation present (GI) and Yes Hernia present Other: moderate-sized umbilical hernia was some incarcerated preperitoneal, omentum Assessment and Plan Assessment and plan (1) Umbilical hernia without obstruction and without gangrene: Code(s): K42.9 - Umbilical hernia without obstruction or gangrene Status: Acute Assessment and Plan: approximately 3-4 cm defect that is reducible, will set up for robotic assisted repair with mesh concurrently with robotic assisted prostatectomy
--- NOTE | 2024-11-14 07:26 | WPDHPUPDATE1 ---
History and Physical Update Update Date/Time: 11/14/24 07:26 History and Physical has been reviewed, including an updated exam of the patient. There are NO changes in the patient's condition. Risks, benefits, and alternatives have been discussed and questions answered. Patient agrees to proceed with procedure.
[2024-11-14] MEDS: ceFAZolin 2 GM/D5W 50 ML 2 GM/50 ML BAG IVPB (07:33)
[2024-11-14] MEDS: BUPIVACAINE/EPINEPHRINE 0.5% 50 ML VIAL 30 ML INFILTRATE (08:17)
--- NOTE | 2024-11-14 10:47 | P.OP_ITS ---
Procedure Note - Detailed Date of Procedure 11/14/24 Pre-op Diagnosis Prostate CA, umbilical hernia (4cm) Post-op Diagnosis Same Procedure Performed Robotic assisted radical prostatectomy and bilateral pelvic lymphadenectomy - Dr. Arteaga Repair - Dr. Ji Surgeon Vamsi Arteaga MD Anesthesia General Description of Procedure The patient was brought to the operative suite, where he was prepped and draped in routine sterile fashion while in a dorsal lithotomy, deep Trendelenburg position. A supraumbilical 10 mm trocar was placed after insufflation of the abdomen with a Veress needle. Three robotic ports were then placed under direct vision. Two of these were placed in the right lower quadrant - 10 cm and 20 cm lateral to, and in line with, the umbilicus. A third robotic trocar was placed 10 cm to the left of the umbilicus, and 20 cm to the left of the umbilicus, a 12 mm standard laparoscopic trocar was placed to be used as an oceanographer assistant port. Lastly, a 5 mm trocar was placed in the left upper quadrant midway between the umbilicus and the left robotic trocar. Attention was then turned to the prostatectomy. I opted for a posterior approach in this patient. An incision was made in the parietal peritoneum along the posterior bladder/posterior prostate about 2 cm above the reflection of the peritoneum over the anterior rectum. The seminal vesicles and vas deferens were immediately identified. Dissection is undertaken in a fashion so as to avoid electrocautery as much as possible, particularly near the tips of the seminal vesicles. Dissection was also carried out in the midline so as to avoid any encounters with the ureters. The vas deferens and the seminal vesicles were dissected in their entirety to the base of the prostate. The plane anterior to Denoviller's fascia, anterior to the rectum and posterior to the prostate was then developed. I then dropped the bladder by incising the anterior parietal peritoneum just lateral to the median umbilical ligaments bilaterally. The bladder was dropped from the anterior abdominal and pelvic wall. The endopelvic fascia was ident ified and incised bilaterally, allowing for dissection of the posterior-lateral aspect of the prostate. The puboprostatic ligaments were transected near their origin from the posterior pubic ramus. This posterior lateral dissection of the prostate is also undertaken in a fashion so as to avoid electrocautery as much as possible. The dorsal vein of the penis is then secured with an 0 -Vicryl lig ature. Attention is then turned to the bladder neck. The anterior bladder neck is incised at the vesico-prostatic junction. The previously placed urethral catheter was drawn through the urethrotomy. A very small bladder neck was maintained throughout the remainder of this dissection. The posterior bladder neck was incised in a fashion so as to avoid any injury to the ureteral orifices. Again, the small aperture of the bladder neck was maintained. The previously dissected vas deferens and the seminal vesicles were brought through the posterior bladder neck incision. The lateral prostatic pedicles were then carefully dissected from the lateral aspect of the prostate bilaterally. The prostatic pedicles were secured with Weck clips and transected. The neurovascular bundles were carefully dissected from the posterior-lateral aspect of the prostate. The dorsal vein of the penis was incised with electrocautery. Using cold scissors, the urethra was incised. After withdrawing the previously placed urethral catheter, the posterior urethra was sharply incised, as was the rectalurethralis muscle. Attention was then turned to an extended bilateral pelvic lymphadenectomy. The limits of this dissection were similar bilaterally. Specifically, the limits were the bifurcation of the common iliac vein proximally, the Ralph's ligament distally, the pevic floor posteriorly. the pelvic sidewall laterally and the anterior aspect to the external iliac artery laterally. This dissection was undertaken with care to avoid any injury to the obturator nerve. The prostate, seminal vesicles and pelvic nodes were then placed in a specimen bag. The pelvis was copiously irrigated with saline. Urethrovesical anastomosis was then undertaken using similar two 3-0 V-lock sutures across a 20-Estonian urethral catheter. The catheter was irrigated, and there was found to be no evidence of an irrigant extravasation. I opted not to place a pelvic drain. The robot is undocked, and the trocars were removed. The specimen was removed through the supraumbilical incision. The anterior rectus fascia at that suprapubic site was closed with a looped 0-PDS. Subcutaneous tissue was irrig ated. Skin incisions were closed with 4-0 Vicryl subcuticular. Blood loss throughout this was 100cc. The patient tolerated the procedure well, was taken to recovery room in good condition. Estimated Blood Loss 100 Drains No Packing No Pathology None sent Complications No immediate complications
--- NOTE | 2024-11-14 11:10 | W.PM.PROC2 ---
Procedure Note - Detailed Date of Procedure 11/14/24 Pre-op Diagnosis prostate CA, umbilical hernia (4cm) Post-op Diagnosis Same Procedure Performed Open umbilical hernia repair with 8 cm Ventralex mesh in the underlay position Surgeon Toshia Ji MD Anesthesia General Indications 74-year-old male presenting with prostate cancer and moderate-sized umbilical hernia defect. Patient undergoing prostatectomy by Dr. Arteaga and would like concurrent repair of this hernia. Findings 4 cm umbilical defect with incarcerated preperitoneal fat and omentum Description of Procedure The patient was under general anesthesia for his robotic assisted prostatectomy. All previous ports were undocked. There was a larger supraumbilical incision that had been used to remove the prostate. Please see Dr. Arteaga's full operative report for details of that procedure. A time-out was then done to verify the patient's identity, as well as the procedure being performed. I began by the hernia sac off the overlying umbilicus. Once circumferentially around the hernia sac, the sac was excised. This was sent to pathology for further review. I then examined the contents of the hernia, which included preperitoneal fat and omentum. This was viable and pathology free, I reduced this back into the abdominal cavity. As this left an approximately 4 cm fascial defect. I placed a 8 cm Ventralex mesh in the underlay position. This was sutured in circumferentially with interrupted 0 Ethibond sutures. This had good overlap of the defect. I then closed the overlying fascia using a 1. PDS suture. The umbilicus was then tacked down to our fascial repair using a 0 Vicryl U-stitch. The subcutaneous tissue was then closed with 3-0 Vicryl suture. The skin was closed 4-0 Monocryl subcuticular suture. All subsequent port sites were also closed with 4-0 Monocryl subcuticular suture. Dermabond was placed on all wounds. The patient tolerated the procedures well. He was extubated in the OR without issue. He will be sent to the recovery room in stable condition. Estimated Blood Loss 5 Pathology Yes Complications No immediate complications Condition Stable Disposition PACU [facility] Billing Surgery - Charge Forward: Surgery Billing
[2024-11-14 12:12] LABS: Glucose Point of Care 178 mg/dl (65-105)
--- NOTE | 2024-11-14 13:27 | ADMGEN ---
This patient, Lonny Vargas, was admitted to Medical Room 346-01. Patient/family oriented to hospital policies and general routines including ID bracelet, bed and alarms, visiting hours, pain management, procedures, bathroom and other care routines, personal items, smoking policy, room service/diet, and visiting hours. Information on how to activate the Rapid Response Team has been discussed. Patient/Family are encouraged to report perceived risks to care and to ask questions if they do not understand what they are told or what they should do.
[2024-11-14] MEDS: LACTATED RINGERS 1,000 ML 125 ML IV CONT ×2 (13:49→21:06)
[2024-11-14] MEDS: HYDROcodone/acetaminophen (*CRX) 5-325 MG TABLET 1 TAB PO ×2 (15:45→21:04)
[2024-11-14] MEDS: LOSARTAN POTASSIUM 100 MG TABLET PO (15:45)
[2024-11-14] MEDS: PANTOPRAZOLE 40 MG TABLET PO (15:45)
[2024-11-14 16:57] LABS: Glucose Point of Care 218 mg/dl (65-105)
[2024-11-15 00:28] LABS: Glucose Point of Care 128 mg/dl (65-105)
[2024-11-15 00:38] VITALS: BP 120/55; PULSE 70; RESP 16; TEMP 36.3; O2SAT 93
[2024-11-15] MEDS: HYDROcodone/acetaminophen (*CRX) 5-325 MG TABLET 1 TAB PO ×3 (02:40→12:07)
[2024-11-15 04:38] VITALS: BP 118/52; PULSE 61; RESP 16; TEMP 36.6; O2SAT 92
[2024-11-15] MEDS: LACTATED RINGERS 1,000 ML 125 ML IV CONT (04:59)
[2024-11-15 06:02] LABS: Hematocrit 33.5 % (42.0-52.0); Hemoglobin 11.1 g/dL (14.0-18.0)
[2024-11-15 06:05] LABS: Anion Gap 5 mmol/L (4-12); Blood Urea Nitrogen 22 mg/dL (9-20); Calcium 8.2 mg/dL (8.4-10.2); Carbon Dioxide 25 mmol/L (22-30); Chloride 106 mmol/L (98-107); Estimated CRCL calculation 48 ml/min; Estimated Glomerular Filt Rate > 60; Glucose 105 mg/dL (65-110); Potassium 3.8 mmol/L (3.4-5.0); Sodium 136 mmol/L (137-145)
--- NOTE | 2024-11-15 07:01 | P.PNUR_ITS ---
Progress Note: A&P Assessment and Plan (1) Prostate cancer: Code(s): C61 - Malignant neoplasm of prostate Status: Acute Assessment and Plan: * Doing well POD #1 s/p RALP * Increase diet/ambulation. * Anticipate discharge this Subjective Subjective Date/Time Seen: 11/15/24 07:01 Interval history: Mild abd. discomfort Review of Systems Cardiovascular: Cardiovascular: Denies chest pain, Denies lightheadedness, Denies palpitations and Denies dyspnea Respiratory: Respiratory: Denies dyspnea Gastrointestinal: Gastrointestinal: Reports abdominal pain (mild-mod.), Denies diarrhea, Denies nausea and Denies vomiting Genitourinary: Genitourinary: Denies hematuria and Denies dysuria Endocrine: Endocrine: Denies palpitations Exam Const: General: no acute distress Resp: Effort & Inspection: normal respiratory effort GI: Inspection: non-distended GI Palp: No abdominal tenderness and No Guarding due to palpation present (GI) Auscultation: normal bowel sounds Objective Data Vital Signs Vital Signs: Vital Signs - 24 hr 11/14/24 11:23 11/14/24 11:30 11/14/24 11:45 Temperature 97.3 F L Pulse Rate 67 68 68 Respiratory Rate 21 H 13 17 Blood Pressure 121/70 140/60 138/64 Pulse Oximetry 93 94 91 Oxygen Delivery Simple Face Mask Simple Face Mask Room Air Oxygen Flow Rate 8 8 11/14/24 12:00 11/14/24 12:15 11/14/24 12:30 Temperature Pulse Rate 72 74 73 Respiratory Rate 14 15 13 Blood Pressure 151/69 H 142/67 H 147/67 H Pulse Oximetry 94 95 95 Oxygen Delivery Room Air Nasal Cannula Nasal Cannula Oxygen Flow Rate 2 2 11/14/24 12:50 11/14/24 13:05 11/14/24 16:38 Temperature 96.0 F L 96.7 F L 97.1 F L Pulse Rate 72 75 78 Respiratory Rate 16 16 16 Blood Pressure 140/69 140/61 140/68 Pulse Oximetry 93 93 96 Oxygen Delivery Oxygen Flow Rate 11/14/24 20:38 11/15/24 00:38 11/15/24 04:38 Temperature 97 F L 97.4 F L 97.8 F Pulse Rate 67 70 61 Respiratory Rate 16 16 16 Blood Pressure 121/58 L 120/55 L 118/52 L Pulse Oximetry 95 93 92 Oxygen Delivery Oxygen Flow Rate Intake/Output Intake/Output: Intake & Output 11/12/24 11/13/24 11/14/24 11/15/24 23:59 23:59 23:59 23:59 Intake Total 1880.4 1377.1 Output Total 950 Balance 1880.4 427.1 Meds/Results Medications: Active Medications Generic Name Dose Route Start Last Admin Trade Name Freq PRN Reason Stop Dose Admin Hydrocodone Bitart/Acetaminophen 1 tab 11/14/24 15:29 11/15/24 02:40 Hydrocodone/Acetaminophen (*Crx) 5-325 Mg Tablet PO 1 tab Q4H PRN Administration Pain Rated 4-6 Atorvastatin Calcium 20 mg 11/15/24 09:00 Atorvastatin 20 Mg Tablet PO DAILY RISSA Dextrose 12.5 gm 11/14/24 10:55 Dextrose 50% 25 Gm/50 Ml Syringe IV PUSH PRN PRN Hypoglycemia Protocol Fentanyl Citrate 25 mcg 11/14/24 07:12 Fentanyl Citrate Inj (*Crx) 100 Mcg/2 Ml Vial IV PUSH Q2M PRN Pain Fluoxetine HCl 10 mg 11/15/24 09:00 Fluoxetine Hcl 10 Mg Capsule PO DAILY RISSA Glucagon 1 mg 11/14/24 10:55 Glucagon For Inj 1 Mg Vial IM PRN PRN Hypoglycemia Protocol Glucose 15 gm 11/14/24 10:55 Glucose Oral Gel 15 Gm Of Glucse In 37.5 Gm Tube PO PRN PRN Hypoglycemia Protocol Hydrochlorothiazide 12.5 mg 11/15/24 09:00 Hydrochlorothiazide 12.5 Mg Capsule PO DAILY RISSA Hyoscyamine 0.125 mg 11/14/24 10:53 Hyoscyamine Sulfate 0.125 Mg Tablet SUBLINGUAL Q4H PRN Bladder Spasm Lactated Ringer's 1,000 mls @ 125 mls/hr 11/14/24 10:55 11/15/24 04:59 Lr - Lactated Ringers Iv IV CONT 125 mls/hr .Q8H RISSA Administration Dextrose 1,000 mls @ 100 mls/hr 11/14/24 10:55 Dextrose 5% 1,000 Ml IVPB PRN PRN Hypoglycemia Protocol Ketorolac Tromethamine 15 mg 11/14/24 10:53 11/14/24 13:49 Ketorolac 15 Mg/Ml Vial (*Bkc) IV PUSH 11/15/24 10:52 15 mg Q6H PRN Administration Pain Rated 1-3 Levofloxacin 500 mg 11/15/24 09:00 Levofloxacin 500 Mg Tablet PO DAILY [facility] Losartan Potassium 100 mg 11/14/24 12:40 11/14/24 15:45 Losartan Potassium 100 Mg Tablet PO 100 mg DAILY RISSA Administration Metformin HCl 500 mg 11/15/24 09:00 Metformin Hcl Xr 500 Mg Tab.Sr.24h PO DAILY [facility] Morphine Sulfate 2 mg 11/14/24 15:28 Morphine Sulfate (*Crx) 2 Mg/Ml Inj IV PUSH Q4H PRN Pain Rated 7-10 Naloxone HCl 0.1 mg 11/14/24 10:53 Naloxone Hcl 0.4 Mg/Ml Vial IV PUSH Q2M PRN Opiate Reversal Ondansetron HCl 4 mg 11/14/24 07:12 Ondansetron Inj 4 Mg/2 Ml Vial IV PUSH ONCE PRN Nausea Ondansetron HCl 4 mg 11/14/24 10:53 Ondansetron Inj 4 Mg/2 Ml Vial IV PUSH Q6H PRN Nausea And Vomiting Oxycodone HCl 5 mg 11/14/24 07:12 Oxycodone Hcl (*Crx) 5 Mg Tab Ir PO ONCE PRN Pain Pantoprazole Sodium 40 mg 11/14/24 12:40 11/14/24 15:45 Pantoprazole 40 Mg Tablet PO 40 mg DAILY RISSA Administration Labs Labs: Laboratory Results - last 24 hr 11/14/24 11/14/24 11/14/24 07:11 12:09 16:45 Hgb Hct Sodium Potassium Chloride Carbon Dioxide Anion Gap BUN Creatinine Estim Creat Clear Calc Estimated GFR Glucose POC Capillary Glucose 117 H 178 H 218 H Calcium 11/14/24 11/15/24 21:31 05:42 Hgb 11.1 L Hct 33.5 L Sodium 136 L Potassium 3.8 Chloride 106 Carbon Dioxide 25 Anion Gap 5 BUN 22 H Creatinine 1.12 Estim Creat Clear Calc 48 Estimated GFR > 60 Glucose 105 POC Capillary Glucose 128 H Calcium 8.2 L
[2024-11-15 07:56] LABS: Glucose Point of Care 124 mg/dl (65-105)
[2024-11-15 08:00] VITALS: BP 138/72; PULSE 81; RESP 16; TEMP 36.4; O2SAT 98
[2024-11-15] MEDS: FLUoxetine HCL 10 MG CAPSULE PO (08:59)
[2024-11-15] MEDS: LOSARTAN POTASSIUM 100 MG TABLET PO (08:59)
[2024-11-15] MEDS: ATORVASTATIN 20 MG TABLET PO (08:59)
[2024-11-15] MEDS: metFORMIN HCL XR 500 MG TAB.SR.24H PO (08:59)
[2024-11-15] MEDS: hydroCHLOROthiazide 12.5 MG CAPSULE PO (09:00)
[2024-11-15] MEDS: PANTOPRAZOLE 40 MG TABLET PO (09:00)
[2024-11-15] MEDS: levoFLOXacin 500 MG TABLET PO (09:00)
[2024-11-15 12:02] LABS: Glucose Point of Care 112 mg/dl (65-105)
--- NOTE | 2024-11-15 12:34 | P.DS_ITS ---
DS: Admitting Diagnosis Discharge Date 11/15/24 Admitting Diagnosis Prostate cancer DS: Summary Hospital Course Hospital Course: This patient was admitted on the morning of his planned robotic prostatectomy. This procedure was uneventful, as was his postoperative course. By the evening of the procedure he was sitting at the bedside in tolerating a liquid diet. The following morning he was ambulating freely and tolerating regular food. His catheter drainage remained essentially clear throughout. His postoperative hemoglobin and serum creatinine were unremarkable. At the time of discharge he has been instructed in appropriate care for his Mcclure catheter with both a leg bag and bedside bag. He will be discharged with plans to follow-up in 1 week with a cystogram. Time Spent with Patient Time attestation: Total time spent providing and/or coordinating discharge services: DS: Data Data Completed and Pending Pending studies at discharge: Pending at discharge 11/14/24 10:12 Surgical [PTH] Routine Surgical [PTH] Routine Labs on day of discharge: Labs from last 24 hours 11/15/24 11/15/24 11/15/24 11:59 07:42 05:42 Hgb 11.1 L Hct 33.5 L Sodium 136 L Potassium 3.8 Chloride 106 Carbon Dioxide 25 Anion Gap 5 BUN 22 H Creatinine 1.12 Estim Creat Clear Calc 48 Estimated GFR > 60 Glucose 105 POC Capillary Glucose 112 H 124 H Calcium 8.2 L 11/14/24 11/14/24 21:31 16:45 Hgb Hct Sodium Potassium Chloride Carbon Dioxide Anion Gap BUN Creatinine Estim Creat Clear Calc Estimated GFR Glucose POC Capillary Glucose 128 H 218 H Calcium Discharge Plan Discharge Attending physician on discharge: Vamsi Arteaga Discharging Clinician: Vamsi Arteaga Patient Disposition: Home Activity: other - see discharge instructions Diet: other - see discharge instructions Discharge Instructions: DISCHARGE INSTRUCTION SHEET FOR HERNIA, GALLBLADDER AND APPENDIX SURGERIES DR. RIOJAS PATIENT TO TAKE HOME 1. May shower in 24 hours, no soaking in bath x 2weeks. 2. Call office for: * Wound increasingly painful or bleeding * Vomiting * Fever of greater than 101 degrees 3. If no bowel movement for three days, take 1 oz. (30 ml) Milk of Magnesia or MiraLax 17g 1 to 2 times daily. 4. No heavy lifting > 10-15 pounds x 6 weeks for hernia repairs and 2 weeks for laparoscopic cholecystectomy or appendectomy. 5. No driving for 3 days or while taking narcotic pain medications. 6. Ice to surgical site for 48 hours (30 min on, then 30 min off). 7. Up walking 10-30 minutes three times per day. 8. Resume previous home medications. 9. Follow-up 10-14 days in office for wound check or as previously scheduled. ([id number]) 10. Oral pain medications prescription to be sent to pharmacy. Take Tylenol 500mg every 6 hours and Ibuprofen 600mg every 6 hours for the first 2 days, then as needed. 11. NUTRITION: Start out by drinking fluids and increase your diet as tolerated. If you experience nausea, try dry toast, crackers, and 7-UP. If nausea or vomiting persists, contact your surgeon?s office. 12. Gallbladders-Low Fat Diet for 2 weeks (send care note of low fat diet) 13. Inguinal Hernias-wear scrotal support for 48 hours 14. Abdominal Hernias-if sent home with abdominal binder, wear for the first 2 weeks (may remove to shower or at night to sleep). 1) Mcclure catheter -> leg bag / bedside bag at night. 2) No lifting/straining >15lbs. x3 weeks. 3) No driving x1-week. 4) Resume normal, pre-operative diet. 5) My office will contact regarding follow-up in 1-week with cystogram. Patient Language: Angolan Stand Alone Forms: General Discharge Instructions Follow-up/Referrals: Toshia Riojas MD [Physician] - 2 Weeks Discharge Medications: New hydrocodone-acetaminophen 5-325 mg tablet 1 - 2 tablet PO Q6H PRN (Reason: pain) Qty: 20 0RF cephalexin 500 mg capsule 500 mg PO Q8H Qty: 9 0RF hyoscyamine sulfate 0.125 mg tablet 0.125 mg PO Q6H PRN (Reason: bladder spasms) Qty: 20 2RF docusate sodium [Colace] 100 mg capsule 100 mg PO DAILY Qty: 30 0RF Continued fluoxetine 10 mg capsule 10 mg PO DAILY Qty: 90 1RF Patient Comments: QAM Rx Instructions: TAKE 1 CAPSULE BY MOUTH DAILY metformin 500 mg tablet extended release 24 hr 500 mg PO DAILY Qty: 90 1RF Patient Comments: QAM Rx Instructions: TAKE 1 TABLET BY MOUTH DAILY One-A-Day Men's 50 Plus(vit K) 400-20-370 mcg tablet 1 tablet PO DAILY hydrochlorothiazide 12.5 mg capsule 12.5 mg PO DAILY Patient Comments: QAM pantoprazole 40 mg tablet,delayed release (DR/EC) See Rx Instructions .ROUTE .COMPLEX Qty: 90 1RF Dose Instruction: TAKE 1 TABLET EVERY MORNING Rx Instructions: TAKE 1 TABLET EVERY MORNING atorvastatin 20 mg tablet 20 mg PO DAILY Qty: 90 1RF Rx Instructions: TAKE 1 TABLET DAILY losartan 100 mg tablet See Rx Instructions .ROUTE .COMPLEX Qty: 90 1RF Dose Instruction: TAKE 1 TABLET BY MOUTH DAILY Patient Comments: QAM Rx Instructions: TAKE 1 TABLET BY MOUTH DAILY Held aspirin 81 mg tablet,delayed release (DR/EC) 81 mg PO DAILY Hold Instructions: Resume on 10/20/24. Discontinued finasteride 5 mg tablet 5 mg PO DAILY Date of admission: 11/14/24 08:29 Primary Care Provider: Minda Galloway Admitting Provider: Vamsi Arteaga Attending physician on admission: Vamsi Arteaga Condition: Stable
--- NOTE | 2024-11-15 14:07 | WPDANESPN ---
Anes - Prog Note Post-Op Date/Time: 11/15/24 14:07 Cardiovascular status: normal Respiratory status: normal Airway patency: baseline Mental status: baseline Post-Op hydration status: normal Vital Signs: Last Vital Signs Temp 36.4 C 11/15/24 08:00 Pulse 81 11/15/24 08:00 Resp 16 11/15/24 08:00 BP 138/72 11/15/24 08:00 Pulse Ox 98 11/15/24 08:00 O2 Del Method Nasal Cannula 11/14/24 12:30 O2 Flow Rate 2 11/14/24 12:30 Pain Score (VAS): 2 I/O: Intake & Output 11/14/24 11/15/24 11/15/24 23:59 07:59 15:59 Intake Total 1030.4 1377.1 360 Output Total 950 Balance 1030.4 427.1 360 Laboratory Tests 11/15/24 05:42 11/15/24 05:42 11/14/24 11/14/24 11/15/24 16:45 21:31 05:42 Hgb 11.1 L Hct 33.5 L Sodium 136 L Potassium 3.8 Chloride 106 Carbon Dioxide 25 Anion Gap 5 BUN 22 H Creatinine 1.12 Estim Creat Clear Calc 48 Estimated GFR > 60 Glucose 105 POC Capillary Glucose 218 H 128 H Calcium 8.2 L 11/15/24 11/15/24 07:42 11:59 Hgb Hct Sodium Potassium Chloride Carbon Dioxide Anion Gap BUN Creatinine Estim Creat Clear Calc Estimated GFR Glucose POC Capillary Glucose 124 H 112 H Calcium Post-procedural complaints: none Patient Feedback: Patient satisfied with anesthetic care.
--- NOTE | 2024-11-15 14:55 | PC.NURSE ---
Education provided on how to change out pedraza catheter leg bag. Patient understands how to change out from large bag to small leg bag. Return demonstration from patient done. Supplies sent.
== END 2024-11-15 14:53 | disposition home or self-care (01) | DRG 707 ==
LOC: ANHSURGERY 11:09 → ANH3MED 13:09
PROVIDERS: Surgery; Admitting Provider Urology; PCP Family Medicine; Visit Provider Urology
PROC: 0VT04ZZ Resection of Prostate, Percutaneous Endoscopic Approach (ICD-10-PCS; CPT 55867; principal; 2024-11-14 07:30)
PROC: 0WUF0JZ Supplement Abdominal Wall with Synthetic Substitute, Open Approach (ICD-10-PCS; 2024-11-14 07:30)
DX: C61 Malignant neoplasm of prostate (principal); K42.0 Umbilical hernia with obstruction, without gangrene; K21.9 Gastro-esophageal reflux disease without esophagitis; I10 Essential (primary) hypertension; E78.2 Mixed hyperlipidemia; M19.90 Unspecified osteoarthritis, unspecified site
CPT/HCPCS: 36415; 80048; 82948; 85014; 85018; 88302; 88305; 88309; A9270; C1781; J0690; J1100; J1171; J1885; J2003; J2250; J2405; J2704; J3010; J7030; J7120; Q9968

== ENCOUNTER 2024-11-21 11:32 | Outpatient (CLI) | payer MEDICARE, BC, SELFPAY ==
--- NOTE | ~2024-11-21 | XR_ITS ---
EXAMINATION: CYSTOGRAM DATE: 11/21/2024 12:41 INDICATION: EXAMINATION: CYSTOGRAM DATE: 11/21/2024 12:41 INDICATION: Postoperative evaluation TECHNIQUE: Initial putty patcher radiograph of the pelvis was performed. There was retrograde administration of 200 mL of Omnipaque 350 mixed with saline contrast into patient's existing Mcclure catheter. Fluoroscopy exposure time was 1.1 minutes. DOSE AREA PRODUCT: 33 Gy-cm2 FINDINGS: Bladder was distended with contrast via the patient's pre-existing Mcclure catheter to 200 mL , as that was all he could tolerate. No leakage within the perivesicular soft tissues. IMPRESSION: No bladder leak, as detailed above Reviewed, dictated and finalized at location A.
== END 2024-11-21 11:33 | disposition home or self-care (01) ==
PROVIDERS: PCP Family Medicine; Visit Provider Urology
DX: C61 Malignant neoplasm of prostate (principal)
CPT/HCPCS: 51600; 74430; Q9967

== ENCOUNTER 2025-05-19 11:01 | Outpatient (CLI) | payer MEDICARE, BC, SELFPAY ==
--- NOTE | ~2025-05-19 | CT_ITS ---
EXAMINATION: CT diagnostic chest wo con DATE: 05/19/2025 11:31 INDICATION: aortic root enlargement TECHNIQUE: Computed tomography (CT) of the chest was performed without intravenous contrast. Additional 3D reconstructions utilizing coronal maximum intensity projection (MIP) were performed. Automated exposure control and iterative reconstruction technique were employed. The dose-length product was 22 6.25 mGy-cm. COMPARISON: 02/13/2024 FINDINGS: There are few bilateral small calcified pulmonary nodules along with calcified bilateral hilar lymph nodes consistent with old granulomatous disease. No interval change in a 3-4 mm noncalcified nodule at the basilar right lower lobe. Minimal discoid atelectasis in the bilateral lower lobes. No pneumonia, pulmonary edema or pleural effusion. Heart size is normal. No pericardial effusion. No thoracic or upper abdominal aortic aneurysm. The aortic annulus measures up to 3.7 x 3.6 mm tapering to 3.3 x 3.5 cm at the annular tubular junction and increasing to a maximal diameter of 3.8 x 3.7 cm at the mid ascending thoracic aorta. No pathologically enlarged thoracic lymphadenopathy. A few small splenic calcifications consistent with old granulomatous disease. Visualized upper abdomen is otherwise unremarkable. Mild to moderate thoracic spondylosis. IMPRESSION: 1. Ectatic ascending thoracic aorta measuring up to 3.8 x 3.7 cm in maximal diameter. 2. Indeterminate 3-4 mm right lower lobe pulmonary nodule, likely benign given no interval change since the prior study. Reviewed, dictated and finalized at location A. IMPRESSION: 1. Ectatic ascending thoracic aorta measuring up to 3.8 x 3.7 cm in maximal carlyn meter. 2. Indeterminate 3-4 mm right lower lobe pulmonary nodule, likely benign given no interval change since the prior study.
--- OUTSIDE RECORDS SUMMARY | 2025-05-19 12:37 | XMS_ITS | Clinical Summary ---
Author Organization [facility] [address] Address [address] [place] [address] Care Team Providers Care Belt Maker Name Role Phone Minda Galloway MD Primary Care Provider + Allergies Active Allergy Reactions Criticality Noted Date Comments Iodinated Contrast Media Nausea & Vomiting Low 01/22 Medications metFORMIN XR (GLUCOPHAGE XR) 500 mg 24 hr tablet Take 1 tablet (500 mg total) by mouth daily 03/31/[address] (PROTONIX) 40 mg EC tablet 04/21/20 22 Active FLUoxetine 10 mg capsule Take 1 tablet/capsule (10 mg total) by mouth daily 03/31/20 22 Active losartan (COZAAR) 100 mg tablet Take 1 tablet (100 mg total) by mouth daily 06/06/20 23 Active tadalafiL (CIALIS) 20 mg tablet Take 1 tablet (20 mg total) by mouth daily as needed for erectile dysfunction 06/21/20 23 Active multivitamin tabletIndicatio ns:Vitamin Deficiency Prevention Take 1 tablet by mouth Active aspirin 81 mg enteric coated tabletIndicatio ns:prevention of thrombosis Take 1 tablet (81 mg total) by mouth daily 01/30/20 24 Active atorvastatin (LIPITOR) 40 mg tablet Take 1 tablet (40 mg total) by mouth daily Active hydroCHLOROthia zide 12.5 mg tabletIndicatio ns:Essential hypertension Take 2 tablet/capsule (25 mg total) by mouth daily 04/25/20 25 Active atorvastatin (LIPITOR) 20 mg tablet 04/18/20 22 2024 Discontinued(D ose adjustment) finasteride (PROSCAR) 5 mg tablet Take 1 tablet (5 mg total) by mouth daily 03/09/20 22 2024 Discontinued(P atient Reported) hydroCHLOROthia zide (MICROZIDE) 12.5 mg capsuleIndicati ons:Essential hypertension TAKE 1 CAPSULE(12.5 MG) BY MOUTH EVERY MORNING 90 capsule 3 09/09/19 25 2024 Discontinued Active Problems Problem Noted Date Diagnosed Date Aortic root enlargement 01/30/2024 Nonrheumatic aortic valve insufficiency 09/08/19 23 Hyperlipidemia LDL goal <100 05/20/2022 Pre-diabetes 05/20/2022 Essential hypertension 05/20/2022 Bradycardia, unspecified 05/20/2022 Palpitations 05/20/2022 Systolic ejection murmur 05/20/2022 Encounters Date Type Department Care Team Description 04/25/2025 2:00 PM CDT Office Visit [facility] [address] [facility] [address] [place] [phone] Staci Vincent NP Aortic root enlargement; Essential hypertension; Bradycardia, unspecified from Last 3 Months Surgical History Surgery [...] Sign Reading Time Taken Comments Blood Pressure 128/58 04/25/2025 1:57 PM CDT Pulse 64 04/25/2025 1:57 PM CDT Temperature - - Respiratory Rate 15 05/20/2022 3:12 PM CDT Oxygen Saturation 98% 04/25/2025 1:57 PM CDT Inhaled Oxygen Concentration - - Weight 78.5 kg (173 lb) 04/25/2025 1:57 PM CDT Height 172.7 cm (5' 8) 04/25/2025 1:57 PM CDT Body Mass Index 26.3 04/25/2025 1:57 PM CDT Plan of Treatment Health Maintenance Due Date Last Done Comments Depression Screening 1950 Hepatitis C Screening 1950 Hepatitis B Screening 1966 Pneumococcal vaccine 65+ (1 of 1 - PCV) 1998 Zoster Vaccine (1 of 2) 1998 Well Visit 65+ 2013 DTaP/Tdap/Td Vaccine (1 - Tdap) 05/16/2022 Fall Risk Assessment 05/20/2023 05/20/2022 Covid-19 Vaccine ( season) 2025 07/21/2021, 10/19/2020, 09/21/2020 Influenza Vaccine (#1) 2025 , 05/17/2019, 05/17/[address] [place] [address] MEDICARE [facility] [place] [address] [place] [address] MEDICARE [facility] Care Teams Belt Maker Relationship Specialty Start Date End Date Minda Galloway MD PCP - General Family Medicine 04/26/22
== END 2025-05-19 11:02 | disposition home or self-care (01) ==
PROVIDERS: PCP Family Medicine; Visit Provider Nurse Practitioner Adult Health
DX: I77.89 Other specified disorders of arteries and arterioles (principal); R91.1 Solitary pulmonary nodule
CPT/HCPCS: 71250

== ENCOUNTER 2025-06-05 12:49 | Outpatient (CLI) | payer MEDICARE, BC, SELFPAY ==
--- OUTSIDE RECORDS SUMMARY | 2025-06-05 13:21 | XMS_ITS | Clinical Summary ---
Author Organization [facility] [address] Address [address] [place] [address] Care Team Providers Care Cathead Worker Name Role Phone Minda Galloway MD Primary [...] for erectile dysfunction 06/21/20 23 Active multivitamin tabletIndication s:Vitamin Deficiency Prevention Take 1 tablet by mouth Active aspirin 81 mg enteric coated tabletIndication s:prevention of thrombosis Take 1 tablet (81 mg total) by mouth daily 01/30/20 24 Active atorvastatin (LIPITOR) 40 mg tablet Take 1 tablet (40 mg total) by mouth daily Active hydroCHLOROthiaz duc (HYDRODIURIL) 25 mg tablet Take 1 tablet (25 mg total) by mouth daily 90 tablet 05/22/20 25 026 Active hydroCHLOROthiaz duc 12.5 mg tabletIndication s:Essential hypertension Take 2 tablet/capsule (25 mg total) by mouth daily 04/25/20 25 025 Discontin ued(Other ) Active Problems Problem Noted Date Diagnosed Date Aortic root enlargement 01/30/2024 Nonrheumatic aortic valve insufficiency 09/08/19 23 Hyperlipidemia LDL goal <100 05/20/2022 Pre-diabetes 05/20/2022 Essential hypertension 05/20/2022 Bradycardia, unspecified 05/20/2022 Palpitations 05/20/2022 Systolic ejection murmur 05/20/2022 Encounters Date Type Department Care Team Description 05/20/[address] [facility] Cardiology [address] [place] [address] [place] [phone] Staci Vincent NP Aortic root enlargement 05/20/2025 Results Follow-Up [facility] Cardiology [address] [place] [address] [place] [phone] Staci Vincent NP Basic metabolic panel 04/25/2025 2:00 PM CDT Office Visit [facility] Cardiology [address] [place] [address] [address] [place] [phone] Staci Vincent NP Aortic root enlargement; Essential hypertension; Bradycardia, unspecified from Last 3 Months Surgical History Surgery Date Site/Laterality Comments VASECTOMY 1985 Medical History Medical History Date Comments Hypertension GERD (gastroesophageal reflux disease) 2001 Benign prostatic hyperplasia 2012 Cancer (HCC) 08/08/2024 (prostate cancer) Family History Medical History Relation Name Comments Cancer Father Beto Vargas Colon cancer Father Beto Vargas Diabetes Maternal Grandmother Jaci aVrgas Car Accident Mother Relation Name Status Comments [...] 05/20/2023 05/20/2022 Covid-19 Vaccine (4 - season) 2025 07/21/2021, 10/19/2020, 09/21/2020 Influenza Vaccine (#1) 2025 , 05/17/2019, 05/17/2018 Procedures Procedure Name Priority Date/Time Associated Diagnosis Comments BASIC METABOLIC PANEL Routine 05/19/2025 8:59 AM CDT Essential hypertension from Last 3 Months Results * (ABNORMAL) Basic metabolic panel (05/19/2025 8:59 AM CDT) Glucose 110(H) 65 - 99 mg/dL [facility] Comment: Fasting reference interval For someone without known diabetes, a glucose value between 100 and 125 mg/dL is consistent with prediabetes and should be confirmed with a follow-up test. BUN 23 7 - 25 mg/dL [facility] Creatinine 1.16 0.70 - 1.28 mg/dL [facility] eGFR 65 > OR = 60 mL/min/1.7 3m2 [facility] BUN/creat ratio SEE NOTE: 6 - 22 (calc) [facility] Comment: Not Reported: BUN and Creatinine are within reference range. Sodium 138 135 - 146 mmol/L [facility] Potassium, pl 4.2 3.5 - 5.3 mmol/L [facility] Chloride 104 98 - 110 mmol/L [facility] CO2 26 20 - 32 mmol/L [facility] Calcium 9.2 8.6 - 10.3 mg/dL [facility] Blood 05/19/2025 8:59 AM CDT 05/19/2025 9:00 AM CDT Narrative [facility] - 05/20/2025 3:05 AM CDT FASTING:YES FASTING: YES Staci Vincent NP LAB BLOOD ORDERABLES María l Result [facility] [address] [phone] from Last 3 Months Insurance MEDICARE [facility] MEDICARE [facility] Care Teams Cathead Worker Relationship Specialty Start Date End Date Minda Galloway MD PCP - General Family Medicine 04/26/22
== END 2025-06-05 12:50 | disposition home or self-care (01) ==
LOC: ANHAUDIO 12:49
PROVIDERS: PCP Family Medicine; Visit Provider Student in an Organized Health Care Education/Training Program
DX: E11.9 Type 2 diabetes mellitus without complications (principal); C61 Malignant neoplasm of prostate; I10 Essential (primary) hypertension; E66.3 Overweight; E78.2 Mixed hyperlipidemia; H90.42 Sensorineural hearing loss, unilateral, left ear, with unrestricted hearing on the contralateral side
CPT/HCPCS: 92557; 92567; 99199